=== PATIENT | male | born 1955 | race African-American/Black ===

== ENCOUNTER → 2017-03-21 | Outpatient (CLI) | payer OTHER, BC ==
[2014-02-02 13:59] VITALS: BP 187/109
--- NOTE | 2017-03-21 15:43 | RAD ---
History: Low back pain Study: Lumbar spine complete Findings: Multiple views of the lumbar spine demonstrate normal alignment and disc spacing. There is only minimal endplate spurring. There are mild degenerative changes of the lower lumbar apophyseal angelita ints. No fracture or bony destructive process is seen. Impression: Minimal spondylosis and osteoarthrosis of the lumbar spine. Reported By:
== END | disposition home or self-care (01) | DRG 552 ==
LOC: RAD 14:18
PROVIDERS: ATTEND Nurse Practitioner Family
DX: M54.5 Low back pain (principal); M47.896 Other spondylosis, lumbar region
CPT/HCPCS: 72110

== ENCOUNTER 2017-06-02 11:27 | Observation (INO) | payer OTHER, BC ==
[2017-06-02] MEDS ORDERED: TUSSIONEX PENNKINETIC SUSP PO PRN (12:02)
--- NOTE | 2017-06-02 12:23 | DR.H&P ---
H&P - History & Physical for Day of: H&P Date: 06/02/17 - Chief Complaint Chief Complaint: FEVER, CHILLS, CCC, WHEEZING, BODY ACHES - Allergies Allergies/Adverse Reactions: Allergies Allergy/AdvReac Type Severity Reaction Status Date / Time MS No Known Drug Allergy Allergy Unverified 02/02/14 13:59 [No Known Drug Allergy] - History of Present Illness History of Present Illness: 61 BM DIRECT ADMIT FROM DR CHEUNG OFFICE WITH CO FEVER, CHILLS, CCC AND WHEEZING FOR 2 WEEKS. PT HAS TAKEN IM STEROIDS AND OTC MEDICATION FOR CHEST CONGESTION. PT STATES HE HAS BEEN WEAK IN THE BED WITH CHILLS FOR LAST 2-3 DAYS. PT HAS PMH OF HTN, PROSTATE CA, BPH, OA. PT ADMITTED FOR TREATMENT AND EVALUATION OF BRONCHITIS AND FLU LIKE ILLNESS - Past Medical History Past Medical History: Gout, Hypertension - Social History Does patient currently use any type of tobacco product: Yes Have you used tobacco products in the last 12 months: Yes (`) Type of Tobacco Use: Cigarettes Does any household member use tobacco: No Alcohol Use: Occasionally Drug Use: None - Review of Systems Constitutional: Fever, Chills, Weakness Eyes: No Symptoms Reported ENT: Nose Discharge, Nose Congestion, Throat Pain Respiratory: Cough, Sputum, Wheezing Cardiovascular: No Symptoms Reported Gastrointestinal: No Symptoms Reported Genitourinary: No Symptoms Reported Musculoskeletal: Shoulder Pain, Back Pain, Leg Pain Skin: No Symptoms Reported Neurological: Weakness - Physical Exam Vital Signs: Blood Pressure 187/109 Oriented: Normal Eyes: Normal Ear: Normal Nose: Discharge Throat: Normal Respiratory: RLL Diminished, LLL Diminished Cardiovascular: Normal : Normal Auscultation: Bowel Sounds: Normal Palpation: Normal Tenderness: Normal Skin: Normal Musculoskeletal: Right, Left, Knee, Back:Lumbar, Tender, Instability Psychiatric: Anxiety Speech Pattern: Clear, Appropriate - Assessment/Plan (1) Acute bronchitis Status: Acute Plan: ADMIT, PNEUMONIA PROTOCOL. IV ATBX, RESP THERAPY, CXR ON ADMISSION. BLOOD AND SPUTUM CULTURES, SUPPLEMENTAL O2. RESUME HOME MEDS. HTN MONITORING (2) Hypertension Status: Acute (3) Myalgia and myositis Status: Acute
[2017-06-02] MEDS ORDERED: DUONEB 0.5 MG/3 MG ONE (12:59)
[2017-06-02] MEDS: DUONEB 0.5 MG/3 MG NEB SCH ×3 (13:00→20:51)
--- NOTE | 2017-06-02 13:53 | RAD ---
HISTORY: Cough Study: Chest PA and lateral Comparison: None Findings: The heart is within normal limits in size. The chaya are normal. The lungs are well inflated and free of acute alveolar infiltrates. No pleural effusions are identified. The bony thorax is unremarkable w ith the exception of thoracic spondylosis. IMPRESSION: Lungs clear Reported By:
[2017-06-02 14:04] LABS: ALANINE AMINOTRANSFERASE 44 Units/L (12-78); ALBUMIN 4.2 g/dL (3.4-5.0); ALKALINE PHOSPHATASE 76 Units/L (46-116); ASPARTATE AMINO TRANSFERASE 23 Units/L (15-37); BLOOD UREA NITROGEN 18 mg/dL (7-18); CALCIUM 8.8 mg/dL (8.5-10.1); CARBON DIOXIDE 23.4 mmol/L (21-32); CHLORIDE 104 mmol/L (98-107); CREATININE 1.35 mg/dL (0.70-1.30); SODIUM 139 mmol/L (136-145); TOTAL PROTEIN 8.9 g/dL (6.4-8.2); eGFR BLACK RACES > 60 (>60); eGFR NON BLACK RACES 57 (>60)
[2017-06-02 14:08] LABS: BASOPHILS # (AUTO) 0.1 X10^3/uL (0.0-0.1); EOSINOPHILS # (AUTO) 0.2 x10^3/uL (0.0-0.2); EOSINOPHILS % (AUTO) 1.8 % (0.9-2.9); HEMOGLOBIN 17.3 g/dL (13.5-18.0); LYMPHOCYTES % (AUTO) 19.7 % (21.0-51.0); MEAN CORPUSCULAR HEMOGLOBIN 30.1 pg (27.0-34.0); MEAN CORPUSCULAR HGB CONC 35.4 g/dL (33.0-35.0); MEAN PLATELET VOLUME 8.6 fL (7.4-11.0); MONOCYTES # (AUTO) 0.8 x10^3/uL (0.3-0.8); MONOCYTES % (AUTO) 7.9 % (0.0-13.0); NEUTROPHILS # (AUTO) 7.2 x10^3/uL (2.2-4.8); NEUTROPHILS % (AUTO) 69.6 % (42.0-75.0); PLATELET COUNT 224 X10^3/uL (150.0-450.0); RED BLOOD COUNT 5.76 X10^6/uL (4.7-6.0); RED CELL DISTRIBUTION WIDTH 13.9 % (11.6-16.5); WHITE BLOOD COUNT 10.4 X10^3/uL (3.6-10.0)
[2017-06-02] MEDS ORDERED: NS 1/2 1000 ML IV 1,000 ML IV ONE (14:28)
[2017-06-02] MEDS: COLACE CAP 100 MG PO SCH ×2 (14:42→21:03)
[2017-06-02] MEDS: LEVAQUIN PREMIX IV 750 MG 750 MG/150 ML BAG IV SCH (14:42)
[2017-06-02] MEDS: NS 1/2 1000 ML IV 1,000 ML IV SCH (14:43)
[2017-06-02] MEDS: ROBITUSSIN DM PO SCH ×3 (14:44→21:03)
[2017-06-02] MEDS: ZOSYN VIAL 4.5 GM 4.5 GM in NS 100 ML IV + SPIKE MINIBAG* 100 ML IV SCH ×2 (14:44→22:02)
[2017-06-02] MEDS: SOLU-Medrol 40 MG VIAL IVP SCH ×3 (14:44→22:02)
[2017-06-02] MEDS: PERCOCET TAB 5/325 MG PO PRN ×2 (14:58→21:03)
[2017-06-03] MEDS: DUONEB 0.5 MG/3 MG NEB SCH ×6 (01:06→21:29)
[2017-06-03] MEDS: SOLU-Medrol 40 MG VIAL IVP SCH ×3 (06:08→21:22)
[2017-06-03] MEDS: ZOSYN VIAL 4.5 GM 4.5 GM in NS 100 ML IV + SPIKE MINIBAG* 100 ML IV SCH ×3 (06:09→21:22)
[2017-06-03 06:24] VITALS: BMI 39.8
[2017-06-03 06:24] LABS: BASOPHILS % (AUTO) 0.3 % (0.2-1.0); HEMATOCRIT 46.4 % (42.0-54.0); HEMOGLOBIN 16.1 g/dL (13.5-18.0); LYMPHOCYTES # (AUTO) 0.7 X10^3/uL (1.3-2.9); LYMPHOCYTES % (AUTO) 6.9 % (21.0-51.0); MEAN CORPUSCULAR HEMOGLOBIN 29.8 pg (27.0-34.0); MEAN CORPUSCULAR HGB CONC 34.7 g/dL (33.0-35.0); MEAN CORPUSCULAR VOLUME 85.9 fL (80.0-100.0); MEAN PLATELET VOLUME 8.4 fL (7.4-11.0); MONOCYTES # (AUTO) 0.3 x10^3/uL (0.3-0.8); MONOCYTES % (AUTO) 2.6 % (0.0-13.0); NEUTROPHILS # (AUTO) 9.4 x10^3/uL (2.2-4.8); NEUTROPHILS % (AUTO) 90.2 % (42.0-75.0); PLATELET COUNT 252 X10^3/uL (150.0-450.0); RED CELL DISTRIBUTION WIDTH 13.8 % (11.6-16.5); WHITE BLOOD COUNT 10.4 X10^3/uL (3.6-10.0)
[2017-06-03 06:36] LABS: BAND NEUTROPHILS % 5 % (0-10)
[2017-06-03 06:37] LABS: PLATELET MORPHOLOGY COMMENT NORMAL (NORMAL)
[2017-06-03 06:38] LABS: ALANINE AMINOTRANSFERASE 39 Units/L (12-78); ALBUMIN 3.7 g/dL (3.4-5.0); ALKALINE PHOSPHATASE 62 Units/L (46-116); ASPARTATE AMINO TRANSFERASE 19 Units/L (15-37); BLOOD UREA NITROGEN 24 mg/dL (7-18); CALCIUM 8.7 mg/dL (8.5-10.1); CARBON DIOXIDE 26.5 mmol/L (21-32); CHLORIDE 103 mmol/L (98-107); COR NA(FOR HYPERGLY) 139 mmol/L (136-145); CREATININE 2.08 mg/dL (0.70-1.30); SODIUM 138 mmol/L (136-145); TOTAL PROTEIN 8.7 g/dL (6.4-8.2); eGFR BLACK RACES 42 (>60); eGFR NON BLACK RACES 35 (>60)
[2017-06-03] MEDS: ROBITUSSIN DM PO SCH ×4 (09:45→21:22)
[2017-06-03] MEDS: LEVAQUIN PREMIX IV 750 MG 750 MG/150 ML BAG IV SCH (09:45)
[2017-06-03] MEDS: PERCOCET TAB 5/325 MG PO PRN ×2 (10:13→21:35)
[2017-06-03] MEDS ORDERED: ZESTRIL TAB 20 MG ONE (10:55)
[2017-06-03] MEDS: HYDROCHLOROTHIAZIDE 12.5 MG CAP PO SCH (11:14)
[2017-06-03] MEDS: ZANTAC PO SCH (11:15)
[2017-06-03] MEDS: ZESTRIL TAB 20 MG PO SCH (11:15)
[2017-06-03] MEDS ORDERED: NS 1/2 1000 ML IV 1,000 ML IV ONE ×2 (12:24→16:48)
[2017-06-03] MEDS: NEURONTIN CAP 300 MG PO SCH ×2 (13:07→21:22)
[2017-06-03] MEDS ORDERED: TIZANIDINE HCL 6 MG PO SCH (14:00)
[2017-06-03] MEDS: NS 1/2 1000 ML IV 1,000 ML IV SCH ×3 (15:07→22:05)
[2017-06-03] MEDS ORDERED: LEVSIN/MAALOX/LIDOC VISC PO PRN (16:00)
--- NOTE | 2017-06-03 17:30 | DR.CONSULT ---
Consult - Consultation for Day of: Date: 06/03/17 - Chief Complaint Chief Complaint: Patient referred for dysphagia. Patient with complaints of dysphagia and LUQ pain. - Allergies Allergies/Adverse Reactions: Allergies Allergy/AdvReac Type Severity Reaction Status Date / Time No Known Drug Allergies Allergy Verified 06/02/17 13:16 - History of Present Illness History of Present Illness: Patient is a 61yo male who was referred for dysphagia. Patient with complaints of dysphagia that has been going on for 1 year and LUQ pain. Patient denies dyspepsia, nausea, vomiting, constipation, diarrhea, melena and hematochezia. He states that he had a colonoscopy over 10yrs ago and has never had an EGD. - Past Medical History Past Medical History: Gout, Hypertension Additional Medical History: hypercholesterolemia, prostate cancer - Past Surgical History Surgical History: Appendectomy, Other - Family History Family Medical History: ID, Coronary Artery Disease, Heart Failure, Sudden Cardiac , Hypertension - Social History Does patient currently use any type of tobacco product: No Have you used tobacco products in the last 12 months: No (`) Type of Tobacco Use: None How many years tobacco product used: 15 Does any household member use tobacco: No Alcohol Use: Occasionally Drug Use: None - Medications Home Medications: Allopurinol 300 mg PO DAILY 06/02/17 [History Confirmed 06/02/17] Anastrozole [ARIMIDEX tab 1 mg *] 1 tab PO DAILY 06/02/17 [History Confirmed 02/07] Aspirin EC [ASPIRIN EC 81 MG *] 1 tab PO DAILY 06/02/17 [History Confirmed 06/02] Gabapentin 1 cap PO TID 06/02/17 [History Confirmed 06/02/17] Lisinopril/Hydrochlorothiazide [Lisinopril-Hctz 20-12.5 mg Tab] 1 tab PO DAILY 06/02/17 [History Confirmed 06/02/17] Metoprolol Succinate Ext Rel [TOPROL XL 25 MG *] 1 tab PO DAILY 06/02/17 [ History Confirmed 06/02/17] Oxycodone HCl/Acetaminophen [Percocet 10-325 mg Tablet] 1 tab PO Q6H PRN [History Confirmed 06/02/17] Ranitidine HCl 1 tab PO HS 06/02/17 [History Confirmed 06/02/17] Simvastatin 1 tab PO HS 06/02/17 [History Confirmed 06/02/17] Tizanidine HCl 6 mg PO TID 06/02/17 [History Confirmed 06/02/17] - Review of Systems Constitutional: No Symptoms Reported Eyes: No Symptoms Reported ENT: No Symptoms Reported Respiratory: No Symptoms Reported Cardiovascular: No Symptoms Reported Gastrointestinal: Abdominal Pain (LUQ), Other (dysphagia) Genitourinary: No Symptoms Reported Musculoskeletal: No Symptoms Reported Skin: No Symptoms Reported - Physical Exam Vital Signs: Temperature 98.7 F Pulse Rate [Right Brachial] 103 Pulse Rate 86 Respiratory Rate 20 Blood Pressure [Right Arm] 123/57 Blood Pressure 187/109 O2 Sat by Pulse Oximetry 98 Oriented: Normal Eyes: Normal Ear: Normal Nose: Normal Throat: Normal Respiratory: Clear Throughout Cardiovascular: Normal : Normal Auscultation: Bowel Sounds: Normal Palpation: Normal Tenderness: LUQ Skin: Normal Musculoskeletal: Normal Psychiatric: Normal Mood Description: Calm Affect: Normal Speech Pattern: Clear - Plan Plan: Assessment. 1. Dysphagia r/o esophageal stricture. 2. LUQ pain r/o gastric ulcer, gastric adenocarcinoma. 3. Colon Cancer Screening. Plan. 1. Cont pepcid IV. EGD on tuesday if patient still in hospital if patient is discharged he can follow up in office as outpatient and EGD will be set up as outpatient. He will also need a screening colonoscopy as an outpatient
[2017-06-03] MEDS: PEPCID 20 MG IV PREMIX* 20 MG/50 ML BAG IV SCH ×2 (17:35→21:22)
[2017-06-03] MEDS: LOVENOX INJ 40 MG SYR SC SCH (17:36)
[2017-06-03] MEDS ORDERED: RANITIDINE HCL PO SCH (21:00)
[2017-06-03] MEDS: ZOCOR TAB 10 MG PO SCH (21:22)
[2017-06-03] MEDS: COLACE CAP 100 MG PO SCH (21:22)
[2017-06-04] MEDS: DUONEB 0.5 MG/3 MG NEB SCH ×6 (00:39→20:51)
[2017-06-04 05:27] LABS: BASOPHILS % (AUTO) 0.2 % (0.2-1.0); EOSINOPHILS % (AUTO) 0.1 % (0.9-2.9); HEMATOCRIT 45.1 % (42.0-54.0); HEMOGLOBIN 15.6 g/dL (13.5-18.0); LYMPHOCYTES # (AUTO) 0.7 X10^3/uL (1.3-2.9); LYMPHOCYTES % (AUTO) 5.9 % (21.0-51.0); MEAN CORPUSCULAR HEMOGLOBIN 29.9 pg (27.0-34.0); MEAN CORPUSCULAR HGB CONC 34.5 g/dL (33.0-35.0); MEAN CORPUSCULAR VOLUME 86.5 fL (80.0-100.0); MEAN PLATELET VOLUME 8.2 fL (7.4-11.0); MONOCYTES # (AUTO) 0.8 x10^3/uL (0.3-0.8); MONOCYTES % (AUTO) 6.6 % (0.0-13.0); NEUTROPHILS # (AUTO) 10.8 x10^3/uL (2.2-4.8); NEUTROPHILS % (AUTO) 87.2 % (42.0-75.0); PLATELET COUNT 252 X10^3/uL (150.0-450.0); RED BLOOD COUNT 5.22 X10^6/uL (4.7-6.0); RED CELL DISTRIBUTION WIDTH 13.7 % (11.6-16.5); WHITE BLOOD COUNT 12.3 X10^3/uL (3.6-10.0)
[2017-06-04 05:35] LABS: ALANINE AMINOTRANSFERASE 37 Units/L (12-78); ALBUMIN 3.7 g/dL (3.4-5.0); ALKALINE PHOSPHATASE 54 Units/L (46-116); ASPARTATE AMINO TRANSFERASE 31 Units/L (15-37); BLOOD UREA NITROGEN 33 mg/dL (7-18); CARBON DIOXIDE 26.1 mmol/L (21-32); CHLORIDE 101 mmol/L (98-107); COR NA(FOR HYPERGLY) 137 mmol/L (136-145); CREATININE 1.92 mg/dL (0.70-1.30); SODIUM 136 mmol/L (136-145); eGFR BLACK RACES 46 (>60); eGFR NON BLACK RACES 38 (>60)
[2017-06-04] MEDS: SOLU-Medrol 40 MG VIAL IVP SCH ×3 (05:50→21:57)
[2017-06-04] MEDS: NEURONTIN CAP 300 MG PO SCH ×3 (05:50→21:57)
[2017-06-04] MEDS: ZOSYN VIAL 4.5 GM 4.5 GM in NS 100 ML IV + SPIKE MINIBAG* 100 ML IV SCH ×3 (05:50→21:57)
[2017-06-04] MEDS ORDERED: PATIENT'S HOME MEDICATION (Lisinopril/Hydrochlorothiazide [Lisinopril-Hctz 20-12.5 Mg Tab] PO SCH (09:00)
[2017-06-04] MEDS ORDERED: ZESTRIL TAB 20 MG ONE (09:09)
[2017-06-04] MEDS: ASPIRIN EC 81 MG PO SCH (09:16)
[2017-06-04] MEDS: ARIMIDEX PO SCH (09:16)
[2017-06-04] MEDS: LEVAQUIN PREMIX IV 750 MG 750 MG/150 ML BAG IV SCH (09:17)
[2017-06-04] MEDS: ROBITUSSIN DM PO SCH ×4 (09:17→21:56)
[2017-06-04] MEDS: LOVENOX INJ 40 MG SYR SC SCH (09:17)
[2017-06-04] MEDS: PEPCID 20 MG IV PREMIX* 20 MG/50 ML BAG IV SCH ×2 (09:17→21:56)
[2017-06-04] MEDS: HYDROCHLOROTHIAZIDE 12.5 MG CAP PO SCH (09:17)
[2017-06-04] MEDS: ZESTRIL TAB 20 MG PO SCH (09:18)
[2017-06-04] MEDS: ZANTAC PO SCH (09:18)
[2017-06-04] MEDS: TOPROL XL PO SCH (09:18)
[2017-06-04] MEDS: ZYLOPRIM PO SCH (09:18)
[2017-06-04] MEDS: PERCOCET TAB 5/325 MG PO PRN ×2 (09:32→16:03)
[2017-06-04] MEDS: ZANAFLEX PO PRN ×2 (09:32→18:56)
[2017-06-04 09:57] LABS: BILIRUBIN,URINE NEGATIVE (NEGATIVE); BLOOD/HEMOGLOBIN,URINE 1+ (NEGATIVE); GLUCOSE, URINE NEGATIVE (NEGATIVE); KETONES,URINE NEGATIVE (NEGATIVE); LEUKOCYTE ESTERASE ,URINE NEGATIVE (NEGATIVE); NITRITES,URINE NEGATIVE (NEGATIVE); PROTEIN,URINE NEGATIVE (NEGATIVE); UROBILINOGEN,URINE NORMAL (NORMAL)
[2017-06-04 10:14] LABS: APPEARANCE,URINE CLEAR (CLEAR); BACTERIA,URINE NEGATIVE /HPF (NEGATIVE); COLOR,URINE STRAW (YELLOW); RBC,URINE 0-2 /HPF (NONE SEEN); SQUAMOUS EPITHELIAL CELL,UR NEGATIVE /HPF (NEGATIVE)
[2017-06-04] MEDS ORDERED: NS 1/2 1000 ML IV 1,000 ML IV ONE (15:56)
[2017-06-04] MEDS ORDERED: AYR NASAL DROPS PRN (19:41)
[2017-06-04] MEDS: ZOCOR TAB 10 MG PO SCH (21:56)
[2017-06-04] MEDS: COLACE CAP 100 MG PO SCH (21:56)
[2017-06-05] MEDS: DUONEB 0.5 MG/3 MG NEB SCH ×6 (01:29→21:08)
[2017-06-05] MEDS: NS 1/2 1000 ML IV 1,000 ML IV SCH ×3 (02:55→23:07)
[2017-06-05] MEDS: ZANAFLEX PO PRN ×2 (03:10→12:24)
[2017-06-05] MEDS: PERCOCET TAB 5/325 MG PO PRN ×4 (03:11→18:26)
[2017-06-05 04:59] LABS: BASOPHILS % (AUTO) 0.2 % (0.2-1.0); HEMATOCRIT 44.8 % (42.0-54.0); HEMOGLOBIN 15.5 g/dL (13.5-18.0); LYMPHOCYTES # (AUTO) 0.6 X10^3/uL (1.3-2.9); LYMPHOCYTES % (AUTO) 6.1 % (21.0-51.0); MEAN CORPUSCULAR HGB CONC 34.7 g/dL (33.0-35.0); MEAN CORPUSCULAR VOLUME 86.5 fL (80.0-100.0); MEAN PLATELET VOLUME 8.4 fL (7.4-11.0); MONOCYTES # (AUTO) 0.5 x10^3/uL (0.3-0.8); MONOCYTES % (AUTO) 4.8 % (0.0-13.0); NEUTROPHILS # (AUTO) 9.2 x10^3/uL (2.2-4.8); NEUTROPHILS % (AUTO) 88.9 % (42.0-75.0); PLATELET COUNT 252 X10^3/uL (150.0-450.0); RED BLOOD COUNT 5.18 X10^6/uL (4.7-6.0); RED CELL DISTRIBUTION WIDTH 13.9 % (11.6-16.5); WHITE BLOOD COUNT 10.4 X10^3/uL (3.6-10.0)
[2017-06-05 05:10] LABS: ALANINE AMINOTRANSFERASE 36 Units/L (12-78); ALBUMIN 3.4 g/dL (3.4-5.0); ALKALINE PHOSPHATASE 50 Units/L (46-116); ASPARTATE AMINO TRANSFERASE 31 Units/L (15-37); BLOOD UREA NITROGEN 28 mg/dL (7-18); CALCIUM 8.2 mg/dL (8.5-10.1); CARBON DIOXIDE 25.2 mmol/L (21-32); CHLORIDE 103 mmol/L (98-107); COR NA(FOR HYPERGLY) 140 mmol/L (136-145); CREATININE 1.71 mg/dL (0.70-1.30); SODIUM 138 mmol/L (136-145); TOTAL PROTEIN 7.5 g/dL (6.4-8.2); eGFR BLACK RACES 53 (>60); eGFR NON BLACK RACES 44 (>60)
[2017-06-05] MEDS: NEURONTIN CAP 300 MG PO SCH ×3 (05:33→22:00)
[2017-06-05] MEDS: ZOSYN VIAL 4.5 GM 4.5 GM in NS 100 ML IV + SPIKE MINIBAG* 100 ML IV SCH ×3 (05:33→22:00)
[2017-06-05] MEDS: SOLU-Medrol 40 MG VIAL IVP SCH (05:33)
--- NOTE | 2017-06-05 08:05 | RAD ---
Examination: Portable AP chest History: SOB Comparison 06/02/2017 Findings: Continued normal heart size with essentially clear lungs and pleural spaces. Impression: No acute or significant chest findings on portable AP examination. Reported By:
[2017-06-05] MEDS ORDERED: ZESTRIL TAB 20 MG ONE (08:46)
[2017-06-05] MEDS: ZYLOPRIM PO SCH (08:53)
[2017-06-05] MEDS: PEPCID 20 MG IV PREMIX* 20 MG/50 ML BAG IV SCH ×2 (08:53→20:57)
[2017-06-05] MEDS: ARIMIDEX PO SCH (08:53)
[2017-06-05] MEDS: ZESTRIL TAB 20 MG PO SCH (08:53)
[2017-06-05] MEDS: LOVENOX INJ 40 MG SYR SC SCH (08:54)
[2017-06-05] MEDS: ASPIRIN EC 81 MG PO SCH (08:54)
[2017-06-05] MEDS: HYDROCHLOROTHIAZIDE 12.5 MG CAP PO SCH (08:54)
[2017-06-05] MEDS: ROBITUSSIN DM PO SCH ×4 (08:54→20:55)
[2017-06-05] MEDS: TOPROL XL PO SCH (08:54)
[2017-06-05] MEDS: LEVAQUIN PREMIX IV 750 MG 750 MG/150 ML BAG IV SCH (08:55)
[2017-06-05] MEDS ORDERED: NS 1/2 1000 ML IV 1,000 ML IV ONE (12:16)
[2017-06-05] MEDS: COLACE CAP 100 MG PO SCH (20:55)
[2017-06-05] MEDS: ZOCOR TAB 10 MG PO SCH (20:55)
[2017-06-05] MEDS: MILK OF MAGNESIA PO SCH (20:55)
--- NOTE | 2017-06-05 21:59 | PCM.PROG ---
Progress Note - Progress Note for Day of Date: 06/04/17 - Subjective Subjective: IS BEING TREATED FOR ACUTE BRONCHITIS. TODAY, HE IS ALERT AND ORIENTED, SITTING UP IN BED ON MORNING ROUNDS. HE IS NOTED WITH COMPLAINTS OF SHORTNESS OF BREATH, COUGH, AND DIFFICULTY SWALLOWING. ON EXAMINATION, HE IS NOTED WITH SCATTERED WHEEZING THROUGHOUT. HIS VITALS THIS MORNING ARE 98.3-90-20-96%-142/73. WBC INCREASED FROM 10.4 TO 12.3, BUN 33, CREATININE 1.92, GLUCOSE 147, CALCIUM 8.0. HE IS SCHEDULED FOR AN EGD ON TUESDAY. HE IS CURRENTLY RECEIVING ZOSYN AND LEVAQUIN IV, PEPCID IV, RESPIRATORY TRETMENTS, AND SUPPLEMENTAL OXYGEN. WE WILL CONTINUE WITH CURRENT PLAN TO CARE TODAY. WE PLAN TO FOLLOW UP WITH AM LABS AND CONTINUE TO MONITOR PATIENT. - Past Medical Family Social History Past Med/Fam/Surg Hx: No changes since H&P Allergies: Allergies No Known Drug Allergies Allergy (Verified 06/02/17 13:16) - Review of Systems ROS: No change since H&P - Vital Signs and I&O's Vital Signs: Temperature 98.3 F Pulse Rate [Right Brachial] 61 Pulse Rate 76 Respiratory Rate 16 Blood Pressure [Right Arm] 138/67 Blood Pressure 187/109 O2 Sat by Pulse Oximetry 99 Intake and Output: Intake & Output 06/03/17 06/04/17 06/05/17 06/06/17 11:59 11:59 11:59 11:59 Intake Total 1230 5530 3843 480 Balance 1230 5530 3843 480 - Physical Exam Oriented: Normal Eyes: Normal Ear: Normal Nose: Normal Throat: Normal Respiratory: Wheezes Cardiovascular: Normal : Normal Auscultation: Bowel Sounds: Normal Palpation: Normal Tenderness: LUQ Skin: Normal Musculoskeletal: Normal Psychiatric: Normal Mood Description: Calm Affect: Normal Speech Pattern: Clear, Appropriate - Laboratory and Diagnostics Result Diagrams: 06/05/17 04:20 06/05/17 04:20 Labs: 06/02/17 13:25 Blood Blood Culture - Preliminary 06/02/17 13:30 Blood Blood Culture - Preliminary 06/02/17 13:31 Sputum - Expectorated Sputum Sputum Culture - Final 06/02/17 13:31 Sputum - Expectorated Sputum - Final Laboratory WBC 10.4 X10^3/uL (3.6-10.0) H 06/05/17 04:20 RBC 5.18 X10^6/uL (4.7-6.0) 06/05/17 04:20 Hgb 15.5 g/dL (13.5-18.0) 06/05/17 04:20 Hct 44.8 % (42.0-54.0) 06/05/17 04:20 MCV 86.5 fL (80.0-100.0) 06/05/17 04:20 MCH 30.0 pg (27.0-34.0) 06/05/17 04:20 MCHC 34.7 g/dL (33.0-35.0) 06/05/17 04:20 RDW 13.9 % (11.6-16.5) 06/05/17 04:20 Plt Count 252 X10^3/uL (150.0-450.0) 06/05/17 04:20 Plt Count Comment Adequate (ADEQUATE) 06/03/17 05:27 MPV 8.4 fL (7.4-11.0) 06/05/17 04:20 Neut % (Auto) 88.9 % (42.0-75.0) H 06/05/17 04:20 Lymph % (Auto) 6.1 % (21.0-51.0) L 06/05/17 04:20 [place] % (Auto) 4.8 % (0.0-13.0) 06/05/17 04:20 Eos % (Auto) 0.0 % (0.9-2.9) L 06/05/17 04:20 Baso % (Auto) 0.2 % (0.2-1.0) 06/05/17 04:20 Neut # (Auto) 9.2 x10^3/uL (2.2-4.8) H 06/05/17 04:20 Lymph # (Auto) 0.6 X10^3/uL (1.3-2.9) L 06/05/17 04:20 [place] # (Auto) 0.5 x10^3/uL (0.3-0.8) 06/05/17 04:20 Eos # (Auto) 0.0 x10^3/uL (0.0-0.2) 06/05/17 04:20 Baso # (Auto) 0.0 X10^3/uL (0.0-0.1) 06/05/17 04:20 Absolute Nucleated RBC 0.1 /100WBC 06/05/17 04:20 Total Counted 100 06/03/17 05:27 Neutrophils % (Manual) 81 % (39-76) H 06/03/17 05:27 Band Neutrophils % 5 % (0-10) 06/03/17 05:27 Lymphocytes % (Manual) 8 % (13-43) L 06/03/17 05:27 Monocytes % (Manual) 6 % (4-9) 06/03/17 05:27 Plt Morphology Comment Normal (NORMAL) 06/03/17 05:27 RBC Morphology Normal (NORMAL) 06/03/17 05:27 Sodium 138 mmol/L (136-145) 06/05/17 04:20 Corrected Sodium 140 mmol/L (136-145) 06/05/17 04:20 Potassium 4.3 mmol/L (3.5-5.1) 06/05/17 04:20 Chloride 103 mmol/L (98-107) 06/05/17 04:20 Carbon Dioxide 25.2 mmol/L (21-32) 06/05/17 04:20 BUN 28 mg/dL (7-18) H 06/05/17 04:20 Creatinine 1.71 mg/dL (0.70-1.30) H 06/05/17 04:20 Est GFR (MDRD) Af Amer 53 (>60) L 06/05/17 04:20 Est GFR (MDRD) Non-Af 44 (>60) L 06/05/17 04:20 Glucose 169 mg/dL (65-99) H 06/05/17 04:20 Calcium 8.2 mg/dL (8.5-10.1) L 06/05/17 04:20 Corrected Calcium TNP 06/05/17 04:20 Total Bilirubin 0.30 mg/dL (0.2-1.0) 06/05/17 04:20 AST 31 Units/L (15-37) 06/05/17 04:20 ALT 36 Units/L (12-78) 06/05/17 04:20 Alkaline Phosphatase 50 Units/L (46-116) 06/05/17 04:20 Total Protein 7.5 g/dL (6.4-8.2) 06/05/17 04:20 Albumin 3.4 g/dL (3.4-5.0) 06/05/17 04:20 Globulin 4.1 g/dL (2.5-4.5) 06/05/17 04:20 Albumin/Globulin Ratio 0.8 Ratio (1.1-2.1) L 06/05/17 04:20 Specimen Type Clean catch urine 06/04/17 09:37 Urine Color Straw (YELLOW) 06/04/17 09:37 Urine Appearance Clear (CLEAR) 06/04/17 09:37 Urine pH 6.0 (5.0 - 8.0) 06/04/17 09:37 Ur Specific [place] 1.005 (1.000-1.030) 06/04/17 09:37 Urine Protein Negative (NEGATIVE) 06/04/17 09:37 Urine Glucose (UA) Negative (NEGATIVE) 06/04/17 09:37 Urine Ketones Negative (NEGATIVE) 06/04/17 09:37 Urine Occult Blood 1+ (NEGATIVE) 06/04/17 09:37 Urine Nitrite Negative (NEGATIVE) 06/04/17 09:37 Urine Bilirubin Negative (NEGATIVE) 06/04/17 09:37 Urine Urobilinogen Normal (NORMAL) 06/04/17 09:37 Ur Leukocyte Esterase Negative (NEGATIVE) 06/04/17 09:37 Urine RBC 0-2 /HPF (NONE SEEN) 06/04/17 09:37 Urine WBC None seen /HPF (NONE SEEN) 06/04/17 09:37 Ur Squamous Epith Cells Negative /HPF (NEGATIVE) 06/04/17 09:37 Urine Bacteria Negative /HPF (NEGATIVE) 06/04/17 09:37 Ur Culture Indicated? No/not indicated 06/04/17 09:37
--- NOTE | 2017-06-05 22:48 | PCM.PROG ---
Progress Note - Progress Note for Day of Date: 06/05/17 - Subjective Subjective: IS BEING TREATED FOR ACUTE BRONCHITIS. TODAY, HE IS ALERT AND ORIENTED, SITTING UP IN BED ON MORNING ROUNDS. HE IS NOTED WITH COMPLAINTS OF SHORTNESS OF BREATH, COUGH, AND DIFFICULTY SWALLOWING. ON EXAMINATION, HE IS NOTED WITH SCATTERED WHEEZING THROUGHOUT. HIS VITALS THIS MORNING ARE 98.1-68-20-98%-132/72. ABNORMAL LAB VALUES INCLUDE THE FOLLOWING: WBC 10.4, BUN 28, CREATININE 1.71, GLUCOSE 169, CALCIUM 8.2. HE IS SCHEDULED FOR AN EGD ON TUESDAY. HE IS CURRENTLY RECEIVING ZOSYN AND LEVAQUIN IV, PEPCID IV, RESPIRATORY TRETMENTS, AND SUPPLEMENTAL OXYGEN. WE WILL CONTINUE WITH CURRENT PLAN TO CARE TODAY. WE PLAN TO FOLLOW UP WITH AM LABS AND CONTINUE TO MONITOR PATIENT. - Past Medical Family Social History Past Med/Fam/Surg Hx: No changes since H&P Allergies: Allergies No Known Drug Allergies Allergy (Verified 06/02/17 13:16) - Review of Systems ROS: No change since H&P - Vital Signs and I&O's Vital Signs: Temperature 98.3 F Pulse Rate [Right Brachial] 61 Pulse Rate 76 Respiratory Rate 16 Blood Pressure [Right Arm] 138/67 Blood Pressure 187/109 O2 Sat by Pulse Oximetry 99 Intake and Output: Intake & Output 06/03/17 06/04/17 06/05/17 06/06/17 11:59 11:59 11:59 11:59 Intake Total 1230 5530 3843 480 Balance 1230 5530 3843 480 - Physical Exam Oriented: Normal Eyes: Normal Ear: Normal Nose: Normal Throat: Normal Respiratory: Wheezes Cardiovascular: Normal : Normal Auscultation: Bowel Sounds: Normal Palpation: Normal Tenderness: LUQ Skin: Normal Musculoskeletal: Normal Psychiatric: Normal Mood Description: Calm Affect: Normal Speech Pattern: Clear, Appropriate - Laboratory and Diagnostics Result Diagrams: 06/05/17 04:20 06/05/17 04:20 Labs: 06/02/17 13:25 Blood Blood Culture - Preliminary 06/02/17 13:30 Blood Blood Culture - Preliminary 06/02/17 13:31 Sputum - Expectorated Sputum Sputum Culture - Final 06/02/17 13:31 Sputum - Expectorated Sputum - Final Laboratory WBC 10.4 X10^3/uL (3.6-10.0) H 06/05/17 04:20 RBC 5.18 X10^6/uL (4.7-6.0) 06/05/17 04:20 Hgb 15.5 g/dL (13.5-18.0) 06/05/17 04:20 Hct 44.8 % (42.0-54.0) 06/05/17 04:20 MCV 86.5 fL (80.0-100.0) 06/05/17 04:20 MCH 30.0 pg (27.0-34.0) 06/05/17 04:20 MCHC 34.7 g/dL (33.0-35.0) 06/05/17 04:20 RDW 13.9 % (11.6-16.5) 06/05/17 04:20 Plt Count 252 X10^3/uL (150.0-450.0) 06/05/17 04:20 Plt Count Comment Adequate (ADEQUATE) 06/03/17 05:27 MPV 8.4 fL (7.4-11.0) 06/05/17 04:20 Neut % (Auto) 88.9 % (42.0-75.0) H 06/05/17 04:20 Lymph % (Auto) 6.1 % (21.0-51.0) L 06/05/17 04:20 [place] % (Auto) 4.8 % (0.0-13.0) 06/05/17 04:20 Eos % (Auto) 0.0 % (0.9-2.9) L 06/05/17 04:20 Baso % (Auto) 0.2 % (0.2-1.0) 06/05/17 04:20 Neut # (Auto) 9.2 x10^3/uL (2.2-4.8) H 06/05/17 04:20 Lymph # (Auto) 0.6 X10^3/uL (1.3-2.9) L 06/05/17 04:20 [place] # (Auto) 0.5 x10^3/uL (0.3-0.8) 06/05/17 04:20 Eos # (Auto) 0.0 x10^3/uL (0.0-0.2) 06/05/17 04:20 Baso # (Auto) 0.0 X10^3/uL (0.0-0.1) 06/05/17 04:20 Absolute Nucleated RBC 0.1 /100WBC 06/05/17 04:20 Total Counted 100 06/03/17 05:27 Neutrophils % (Manual) 81 % (39-76) H 06/03/17 05:27 Band Neutrophils % 5 % (0-10) 06/03/17 05:27 Lymphocytes % (Manual) 8 % (13-43) L 06/03/17 05:27 Monocytes % (Manual) 6 % (4-9) 06/03/17 05:27 Plt Morphology Comment Normal (NORMAL) 06/03/17 05:27 RBC Morphology Normal (NORMAL) 06/03/17 05:27 Sodium 138 mmol/L (136-145) 06/05/17 04:20 Corrected Sodium 140 mmol/L (136-145) 06/05/17 04:20 Potassium 4.3 mmol/L (3.5-5.1) 06/05/17 04:20 Chloride 103 mmol/L (98-107) 06/05/17 04:20 Carbon Dioxide 25.2 mmol/L (21-32) 06/05/17 04:20 BUN 28 mg/dL (7-18) H 06/05/17 04:20 Creatinine 1.71 mg/dL (0.70-1.30) H 06/05/17 04:20 Est GFR (MDRD) Af Amer 53 (>60) L 06/05/17 04:20 Est GFR (MDRD) Non-Af 44 (>60) L 06/05/17 04:20 Glucose 169 mg/dL (65-99) H 06/05/17 04:20 Calcium 8.2 mg/dL (8.5-10.1) L 06/05/17 04:20 Corrected Calcium TNP 06/05/17 04:20 Total Bilirubin 0.30 mg/dL (0.2-1.0) 06/05/17 04:20 AST 31 Units/L (15-37) 06/05/17 04:20 ALT 36 Units/L (12-78) 06/05/17 04:20 Alkaline Phosphatase 50 Units/L (46-116) 06/05/17 04:20 Total Protein 7.5 g/dL (6.4-8.2) 06/05/17 04:20 Albumin 3.4 g/dL (3.4-5.0) 06/05/17 04:20 Globulin 4.1 g/dL (2.5-4.5) 06/05/17 04:20 Albumin/Globulin Ratio 0.8 Ratio (1.1-2.1) L 06/05/17 04:20 Specimen Type Clean catch urine 06/04/17 09:37 Urine Color Straw (YELLOW) 06/04/17 09:37 Urine Appearance Clear (CLEAR) 06/04/17 09:37 Urine pH 6.0 (5.0 - 8.0) 06/04/17 09:37 Ur Specific [place] 1.005 (1.000-1.030) 06/04/17 09:37 Urine Protein Negative (NEGATIVE) 06/04/17 09:37 Urine Glucose (UA) Negative (NEGATIVE) 06/04/17 09:37 Urine Ketones Negative (NEGATIVE) 06/04/17 09:37 Urine Occult Blood 1+ (NEGATIVE) 06/04/17 09:37 Urine Nitrite Negative (NEGATIVE) 06/04/17 09:37 Urine Bilirubin Negative (NEGATIVE) 06/04/17 09:37 Urine Urobilinogen Normal (NORMAL) 06/04/17 09:37 Ur Leukocyte Esterase Negative (NEGATIVE) 06/04/17 09:37 Urine RBC 0-2 /HPF (NONE SEEN) 06/04/17 09:37 Urine WBC None seen /HPF (NONE SEEN) 06/04/17 09:37 Ur Squamous Epith Cells Negative /HPF (NEGATIVE) 06/04/17 09:37 Urine Bacteria Negative /HPF (NEGATIVE) 06/04/17 09:37 Ur Culture Indicated? No/not indicated 06/04/17 09:37
[2017-06-06] MEDS: DUONEB 0.5 MG/3 MG NEB SCH ×5 (01:05→16:13)
[2017-06-06 05:22] LABS: BASOPHILS # (AUTO) 0.1 X10^3/uL (0.0-0.1); BASOPHILS % (AUTO) 1.1 % (0.2-1.0); EOSINOPHILS # (AUTO) 0.1 x10^3/uL (0.0-0.2); EOSINOPHILS % (AUTO) 0.7 % (0.9-2.9); HEMATOCRIT 47.1 % (42.0-54.0); HEMOGLOBIN 16.2 g/dL (13.5-18.0); LYMPHOCYTES # (AUTO) 1.6 X10^3/uL (1.3-2.9); LYMPHOCYTES % (AUTO) 16.6 % (21.0-51.0); MEAN CORPUSCULAR HEMOGLOBIN 29.8 pg (27.0-34.0); MEAN CORPUSCULAR HGB CONC 34.3 g/dL (33.0-35.0); MEAN CORPUSCULAR VOLUME 86.9 fL (80.0-100.0); MEAN PLATELET VOLUME 8.6 fL (7.4-11.0); MONOCYTES # (AUTO) 0.6 x10^3/uL (0.3-0.8); MONOCYTES % (AUTO) 6.1 % (0.0-13.0); NEUTROPHILS # (AUTO) 7.2 x10^3/uL (2.2-4.8); NEUTROPHILS % (AUTO) 75.5 % (42.0-75.0); PLATELET COUNT 236 X10^3/uL (150.0-450.0); RED BLOOD COUNT 5.42 X10^6/uL (4.7-6.0); RED CELL DISTRIBUTION WIDTH 13.9 % (11.6-16.5); WHITE BLOOD COUNT 9.6 X10^3/uL (3.6-10.0)
[2017-06-06 05:45] LABS: ALBUMIN 3.1 g/dL (3.4-5.0); CALCIUM 7.9 mg/dL (8.5-10.1); CARBON DIOXIDE 26.4 mmol/L (21-32); COR CA(FOR HYPOALB) 8.6 mg/dL (8.5-10.1); CREATININE 1.57 mg/dL (0.70-1.30); TOTAL PROTEIN 7.2 g/dL (6.4-8.2)
[2017-06-06] MEDS: NEURONTIN CAP 300 MG PO SCH ×2 (06:13→13:07)
[2017-06-06] MEDS: ZOSYN VIAL 4.5 GM 4.5 GM in NS 100 ML IV + SPIKE MINIBAG* 100 ML IV SCH ×2 (06:13→13:07)
--- NOTE | 2017-06-06 07:16 | RAD ---
HISTORY: Shortness of breath Study: Chest AP portable Comparison: None Findings: The heart is within normal limits in size. The chaya are normal. The lungs are well inflated and free of acute infiltrates. No pleural effusions are identified. The bony thorax is unremarkable. IMPRESSION: Lungs clear Reported By:
[2017-06-06] MEDS: PERCOCET TAB 5/325 MG PO PRN (07:30)
[2017-06-06] MEDS ORDERED: NS 1/2 1000 ML IV 1,000 ML IV ONE (08:29)
[2017-06-06] MEDS ORDERED: ZESTRIL TAB 20 MG ONE (08:31)
[2017-06-06] MEDS: PEPCID 20 MG IV PREMIX* 20 MG/50 ML BAG IV SCH (08:36)
[2017-06-06] MEDS: LEVAQUIN PREMIX IV 750 MG 750 MG/150 ML BAG IV SCH (08:36)
[2017-06-06] MEDS: NS 1/2 1000 ML IV 1,000 ML IV SCH (08:36)
[2017-06-06] MEDS: LOVENOX INJ 40 MG SYR SC SCH (08:36)
[2017-06-06] MEDS: ARIMIDEX PO SCH (08:37)
[2017-06-06] MEDS: ZANAFLEX PO PRN (08:37)
[2017-06-06] MEDS: ASPIRIN EC 81 MG PO SCH (08:37)
[2017-06-06] MEDS: TOPROL XL PO SCH (08:37)
[2017-06-06] MEDS: MILK OF MAGNESIA PO SCH (08:37)
[2017-06-06] MEDS: ROBITUSSIN DM PO SCH ×3 (08:37→17:20)
[2017-06-06] MEDS: HYDROCHLOROTHIAZIDE 12.5 MG CAP PO SCH (08:37)
[2017-06-06] MEDS: ZYLOPRIM PO SCH (08:38)
[2017-06-06] MEDS: ZESTRIL TAB 20 MG PO SCH (08:38)
[2017-06-06] MEDS ORDERED: DULCOLAX SUPPOSITORY 10 MG RECTAL SCH (12:04)
[2017-06-06] MEDS ORDERED: DULCOLAX SUPPOSITORY 10 MG RECTAL ONE (15:42)
[2017-06-06 17:15] VITALS: BP 159/95
[2017-06-06] MEDS ORDERED: CITROMA PO ONE (17:30)
== END 2017-06-06 18:00 | disposition home or self-care (01) ==
LOC: UNDOADMOB 11:27 → MED/SURG 11:27
PROVIDERS: ADMIT Internal Medicine; ATTEND Internal Medicine
DX: J20.8 Acute bronchitis due to other specified organisms (principal); I10 Essential (primary) hypertension; N40.0 Benign prostatic hyperplasia without lower urinary tract symptoms; M60.88 Other myositis, other site; R13.11 Dysphagia, oral phase; R10.11 Right upper quadrant pain; K21.9 Gastro-esophageal reflux disease without esophagitis; R94.4 Abnormal results of kidney function studies; Z85.46 Personal history of malignant neoplasm of prostate
CPT/HCPCS: 36415; 71045; 71046; 80053; 81001; 85025; 87040; 87070; 87205; 93005; 93010; 94640; 94760; A4218; A4222; S0028; S0170; G0378; J1650; J1956; J2543; J2920; J7620

== ENCOUNTER 2017-07-07 08:57 | Day surgery (SDC) | payer OTHER, BC ==
[2017-07-07] MEDS ORDERED: D5 LR 1000 ML 1,000 ML IV ONE (09:35)
[2017-07-07] MEDS ORDERED: DIPRIVAN VIAL 20 ML ONE (10:57)
[2017-07-07 11:39] VITALS: BP 140/82
== END 2017-07-07 11:38 | disposition home or self-care (01) ==
LOC: SURG1 08:57
PROVIDERS: ATTEND Internal Medicine Gastroenterology
PROC: 0DB68ZX Excision of Stomach, Via Natural or Artificial Opening Endoscopic, Diagnostic (ICD-10-PCS; principal; 2017-07-07 12:15)
PROC: 0DB88ZX Excision of Small Intestine, Via Natural or Artificial Opening Endoscopic, Diagnostic (ICD-10-PCS; principal; 2017-07-07 12:15)
PROC: 0D757ZZ Dilation of Esophagus, Via Natural or Artificial Opening (ICD-10-PCS; principal; 2017-07-07 12:15)
PROC: 0DJ08ZZ Inspection of Upper Intestinal Tract, Via Natural or Artificial Opening Endoscopic (ICD-10-PCS; principal; 2017-07-07 12:15)
DX: R13.19 Other dysphagia (principal); R10.13 Epigastric pain; K25.9 Gastric ulcer, unspecified as acute or chronic, without hemorrhage or perforation; K29.60 Other gastritis without bleeding; K20.8 Other esophagitis; K22.2 Esophageal obstruction; K21.9 Gastro-esophageal reflux disease without esophagitis
CPT/HCPCS: A4217; J3490; J7120

== ENCOUNTER 2018-07-31 14:21 | Observation (INO) ==
[2018-07-31 15:40] LABS: BASOPHILS % (AUTO) 0.2 % (0.2-1.0); EOSINOPHILS % (AUTO) 0.5 % (0.9-2.9); HEMATOCRIT 40.4 % (42.0-54.0); LYMPHOCYTES # (AUTO) 0.5 X10^3/uL (1.3-2.9); LYMPHOCYTES % (AUTO) 6.8 % (21.0-51.0); MEAN CORPUSCULAR HEMOGLOBIN 30.3 pg (27.0-34.0); MEAN CORPUSCULAR HGB CONC 34.7 g/dL (33.0-35.0); MEAN CORPUSCULAR VOLUME 87.5 fL (80.0-100.0); MEAN PLATELET VOLUME 7.7 fL (7.4-11.0); MONOCYTES # (AUTO) 0.4 x10^3/uL (0.3-0.8); MONOCYTES % (AUTO) 5.9 % (0.0-13.0); NEUTROPHILS # (AUTO) 6.1 x10^3/uL (2.2-4.8); NEUTROPHILS % (AUTO) 86.6 % (42.0-75.0); PLATELET COUNT 230 X10^3/uL (150.0-450.0); RED BLOOD COUNT 4.62 X10^6/uL (4.7-6.0); RED CELL DISTRIBUTION WIDTH 15.4 % (11.6-16.5)
[2018-07-31 15:51] LABS: ALANINE AMINOTRANSFERASE 34 Units/L (12-78); ALBUMIN 3.5 g/dL (3.4-5.0); ALKALINE PHOSPHATASE 87 Units/L (46-116); ASPARTATE AMINO TRANSFERASE 17 Units/L (15-37); BLOOD UREA NITROGEN 22 mg/dL (7-18); CALCIUM 9.1 mg/dL (8.5-10.1); CARBON DIOXIDE 26.5 mmol/L (21-32); CHLORIDE 105 mmol/L (98-107); COR NA(FOR HYPERGLY) 141 mmol/L (136-145); CREATININE 1.37 mg/dL (0.70-1.30); MAGNESIUM 1.7 mg/dL (1.7-2.9); SODIUM 141 mmol/L (136-145); TOTAL PROTEIN 7.5 g/dL (6.4-8.2); eGFR NON BLACK RACES 56 (>60)
[2018-07-31] MEDS: NS 1000 ML 1,000 ML IV SCH (16:00)
[2018-07-31] MEDS: CIPRO IV 400 MG PREMIX* 400 MG/200 ML IV.SOLN. IV SCH ×2 (16:00→22:25)
[2018-07-31] MEDS: TOPROL XL PO SCH (16:00)
[2018-07-31 16:06] LABS: CKMB % 0.5 % (<4); CREATINE KINASE 191 Units/L (39-308); CREATINE KINASE MB < 1.0 ng/mL (0-4.0); TROPONIN I < 0.02 ng/mL (0-1.5)
[2018-07-31 16:13] VITALS: BMI 38.0
[2018-07-31] MEDS ORDERED: K-DUR TAB 20 MEQ PO PRN (16:16)
[2018-07-31] MEDS ORDERED: POTASSIUM CHL 40 MEQ/NS 0.45% 500 ML IV PRN (16:16)
[2018-07-31] MEDS ORDERED: KLOR-CON PO PRN (16:16)
[2018-07-31] MEDS ORDERED: POTASSIUM CHLORIDE LIQ 20 MEQ UDC PO PRN (16:16)
[2018-07-31] MEDS ORDERED: MAGNESIUM SULFATE 1 GRAM/100 mL PREMIX 1 GM/100 ML BAG IV PRN (16:16)
[2018-07-31] MEDS ORDERED: POTASSIUM CHL 60 MEQ/NS 0.45% 500 ML IV PRN (16:16)
[2018-07-31] MEDS ORDERED: K-RIDER 10 MEQ/NS 100 ML 10 MEQ/100 ML BAG IV PRN (16:16)
[2018-07-31] MEDS ORDERED: MICRO K EXTEN CAP 10 MEQ PO PRN (16:16)
[2018-07-31 16:17] LABS: BILIRUBIN,URINE NEGATIVE (NEGATIVE); BLOOD/HEMOGLOBIN,URINE 4+ (NEGATIVE); GLUCOSE, URINE NEGATIVE (NEGATIVE); KETONES,URINE NEGATIVE (NEGATIVE); LEUKOCYTE ESTERASE ,URINE 1+ (NEGATIVE); NITRITES,URINE NEGATIVE (NEGATIVE); PROTEIN,URINE 2+ (NEGATIVE); UROBILINOGEN,URINE 1+ (NORMAL)
[2018-07-31 16:24] LABS: APPEARANCE,URINE SLIGHTLY HAZY (CLEAR); BACTERIA,URINE TRACE /HPF (NEGATIVE); COLOR,URINE DARK YELLOW (YELLOW); MUCUS,URINE FEW /HPF (NEGATIVE); SQUAMOUS EPITHELIAL CELL,UR RARE /HPF (NEGATIVE)
[2018-07-31 16:35] LABS: STOOL FOR WBC POSITIVE (NEGATIVE)
--- NOTE | 2018-07-31 16:39 | CT ---
HISTORY: Intractable dizziness with nausea and vomiting Study: CT brain without contrast Comparison: None Technique: Multiple axial images of the brain were obtained from the skull base to the vertex without administration of IV contrast. AEC was utilized. Findings: No acute intraparenchymal hemorrhage or mass can be identified. No extra-axial fluid collections are seen. No alteration in the attenuation of the brain parenchyma can be identified to suggest acute or subacute ischemic change. The ventricular system is symmetric and nondilated. There are postsurgical changes involving the left globe. IMPRESSION: No acute intracranial process can be identified. Reported By:
[2018-07-31] MEDS ORDERED: PERCOCET TAB 5/325 MG PO PRN (17:08)
--- NOTE | 2018-07-31 17:13 | DR.H&P ---
H&P - History & Physical for Day of: H&P Date: 07/31/18 - Chief Complaint Chief Complaint: N/V/D, DIZZINESS, CANNOT STAND UP, LEG WEAKNESS - History of Present Illness History of Present Illness: 63 [address] AGUIRRE OFFICE WITH CO INTRACTABLE N/V/D SINCE TUESDAY LAST WEEK. PT CO LATER ONST OF DIZZINESS, CANNOT STAND, LOWER EXTREMITY WEAKNESS. PT DENIES ANY BLOOD IN STOOL. PT HAD PMH OF CAD, HTN, PROSTATE CA, BPH. OA, L SPINE DDD. PT ADMITTED FOR TREATMENT AND EVALUATION OF ACUTE ILLNESS. - Past Medical History Past Medical History: Anxiety, Arthritis, Coronary Artery Disease, Gout, H ypertension Additional Medical History: hypercholesterolemia, prostate cancer - Past Surgical History Surgical History: Angioplasty/Stents, Appendectomy, Ortho Surgery, Other - Family History Family Medical History: MA, Coronary Artery Disease, Heart Failure, Sudden Cardiac , Hypertension - Social History Does patient currently use any type of tobacco product: No Have you used tobacco products in the last 12 months: No Type of Tobacco Use: None Does any household member use tobacco: No Alcohol Use: None Drug Use: Prescription Drugs - Medications Home Medications: No Known Drug Allergies Allergy (Verified 06/02/17 13:16) CONTINUE taking the following medications amlodipine 10 mg PO DAILY 07/31/18 [History] lisinopril 20 mg PO DAILY 07/31/18 [History] oxycodone-acetaminophen 1 tab PO PRN PRN 07/31/18 [History] ranitidine HCl 300 mg PO QHS 07/31/18 [History] ticagrelor [Brilinta] 9 mg PO BID 07/31/18 [History] zolpidem 10 mg PO HS 07/31/18 [History] - Review of Systems Constitutional: Weakness Eyes: No Symptoms Reported ENT: No Symptoms Reported Respiratory: Shortness of Breath Cardiovascular: No Symptoms Reported Gastrointestinal: Nausea, Vomiting, Abdominal Pain, Diarrhea Genitourinary: No Symptoms Reported Musculoskeletal: Back Pain Skin: No Symptoms Reported Neurological: Weakness (IN BOTH LEGS, DIZZINESS) - Physical Exam Vital Signs: Temperature 99.5 F Pulse Rate [Right Brachial] 75 Respiratory Rate 20 Blood Pressure [Right Arm] 155/81 Blood Pressure 156/87 O2 Sat by Pulse Oximetry 96 Oriented: Normal Eyes: Normal Ear: Normal Nose: Normal Throat: Normal Respiratory: RLL Diminished, LLL Diminished Cardiovascular: Tachycardia (RATE 110) Auscultation: Bowel Sounds: Normal Palpation: Normal Tenderness: Diffuse, Mild Skin: Decreased [place] Musculoskeletal: Back:Lumbar Psychiatric: Anxiety Affect: Anxious Speech Pattern: Clear, Appropriate - Assessment/Plan (1) Acute gastroenteritis Status: Acute Plan: ADMIT, CBC CMP MAG. UA, STOOL STUDIES. IV HYDRATION, IV CIPRO. BP CONTROL, CT HEAD, ABD SERIES (2) Vertigo Status: Acute (3) Hypertension Status: Acute - Allergies Allergies/Adverse Reactions: Allergies Allergy/AdvReac Type Severity Reaction Status Date / Time No Known Drug Allergies Allergy Verified 06/02/17 13:16
[2018-07-31] MEDS ORDERED: ZOFRAN INJ 4 MG VIAL ONE (17:56)
[2018-07-31] MEDS: ZOFRAN INJ 4 MG VIAL IVP PRN (18:00)
[2018-07-31] MEDS ORDERED: TYLENOL 325 MG TAB PO PRN (19:53)
[2018-07-31] MEDS: PEPCID 20 MG IV PREMIX* 20 MG/50 ML BAG IV SCH (20:20)
[2018-08-01 05:19] LABS: BASOPHILS % (AUTO) 0.2 % (0.2-1.0); EOSINOPHILS % (AUTO) 0.7 % (0.9-2.9); HEMATOCRIT 40.6 % (42.0-54.0); HEMOGLOBIN 13.9 g/dL (13.5-18.0); MEAN CORPUSCULAR HEMOGLOBIN 30.4 pg (27.0-34.0); MEAN CORPUSCULAR HGB CONC 34.3 g/dL (33.0-35.0); MEAN CORPUSCULAR VOLUME 88.7 fL (80.0-100.0); MEAN PLATELET VOLUME 8.4 fL (7.4-11.0); MONOCYTES # (AUTO) 0.6 x10^3/uL (0.3-0.8); MONOCYTES % (AUTO) 8.4 % (0.0-13.0); NEUTROPHILS # (AUTO) 5.1 x10^3/uL (2.2-4.8); NEUTROPHILS % (AUTO) 75.7 % (42.0-75.0); PLATELET COUNT 257 X10^3/uL (150.0-450.0); RED BLOOD COUNT 4.58 X10^6/uL (4.7-6.0); RED CELL DISTRIBUTION WIDTH 15.5 % (11.6-16.5); WHITE BLOOD COUNT 6.7 X10^3/uL (3.6-10.0)
[2018-08-01 05:29] LABS: ALANINE AMINOTRANSFERASE 38 Units/L (12-78); ALBUMIN 3.5 g/dL (3.4-5.0); ALKALINE PHOSPHATASE 90 Units/L (46-116); ASPARTATE AMINO TRANSFERASE 21 Units/L (15-37); BLOOD UREA NITROGEN 23 mg/dL (7-18); CALCIUM 8.7 mg/dL (8.5-10.1); CARBON DIOXIDE 24.3 mmol/L (21-32); CHLORIDE 104 mmol/L (98-107); COR NA(FOR HYPERGLY) 139 mmol/L (136-145); SODIUM 139 mmol/L (136-145); TOTAL PROTEIN 7.7 g/dL (6.4-8.2); eGFR NON BLACK RACES 55 (>60)
--- NOTE | 2018-08-01 06:57 | RAD ---
HISTORY: Abdominal pain, diarrhea Study: Flat and upright abdomen, PA chest Comparison: 06/06/2017 Findings: The heart is within normal limits in size. The chaya are normal. The lung valenzuela are clear. The abdominal gas pattern is nonspecific and nonobstructive. No pneumoperitoneum is identified. Colonic air-fluid levels are present. This can be seen with diarrheal illness. No abnormal masses or abnormal calcifications are identified. IMPRESSION: Nonobstructive bowel gas pattern Lungs clear Reported By:
[2018-08-01] MEDS ORDERED: PHARMACY CONSULT - DOSE _____ XX SCH (08:00)
[2018-08-01] MEDS: CIPRO IV 400 MG PREMIX* 400 MG/200 ML IV.SOLN. IV SCH ×2 (09:03→20:53)
[2018-08-01] MEDS: TOPROL XL PO SCH (09:03)
[2018-08-01] MEDS: PEPCID 20 MG IV PREMIX* 20 MG/50 ML BAG IV SCH (09:03)
[2018-08-01] MEDS ORDERED: ZESTRIL TAB 20 MG PO SCH ×3 (10:00→21:00)
[2018-08-01] MEDS ORDERED: NORVASC TAB 10 MG PO SCH ×2 (10:00→21:00)
[2018-08-01] MEDS ORDERED: ARIMIDEX PO SCH ×2 (10:00→21:00)
[2018-08-01] MEDS ORDERED: ZYLOPRIM PO SCH ×2 (10:00→21:00)
[2018-08-01] MEDS ORDERED: ZANTAC PO SCH (10:00)
[2018-08-01] MEDS: ZOFRAN INJ 4 MG VIAL IVP PRN ×2 (11:42→20:56)
[2018-08-01] MEDS: NEURONTIN CAP 300 MG PO SCH ×2 (13:46)
[2018-08-01] MEDS: NS 1000 ML 1,000 ML IV SCH (13:46)
[2018-08-01] MEDS: ZANAFLEX PO SCH ×2 (13:46→23:54)
--- NOTE | 2018-08-01 17:08 | PCM.PROG ---
Progress Note - Progress Note for Day of Date of Exam: 08/01/18 - Subjective Subjective: 63 BM ADMITTED ON 07/[address] AGUIRRE OFFICE WITH CO FEVER, N/V/D, DEHYDRATION AND LOWER EXTREMITY WEAKNESS AND DIZZINESS. PT CO "FEEL LIKE I GOT THE FLU". PT HAD ABD SERIES WITH AIR/FLUID COLON, PT STOOL STUDIES +BLOOD, WBC. PT WBC 6.7, HGB 13.9, BUN 23, CREAT 1.4. PT REPORTS HE FEELS A LITTLE BETTER AFTER GETTING IV FLUIDS, BUT CONTINUES WITH SEVERE DIARRHEA. PT HAD 101.4 FEVER LAST PMH, INFLUENZA NEGATIVE. PT CURRENTLY ON IV CIPRO, NPO AFTER MIDNIGHT FOR CT/ABD & PELVIS WITH CONTRAST. - Past Medical Family Social History Past Med/Fam/Surg Hx: No changes since H&P Allergies: Allergies No Known Drug Allergies Allergy (Verified 06/02/17 13:16) - Review of Systems ROS: No change since H&P - Vital Signs and I&O's Vital Signs: Temperature 97.8 F Pulse Rate [Right Brachial] 55 Respiratory Rate 20 Blood Pressure [Right Arm] 102/65 Blood Pressure 156/87 O2 Sat by Pulse Oximetry 96 Intake and Output: Intake & Output 07/30/18 07/31/18 08/01/18 08/02/18 11:59 11:59 11:59 11:59 Intake Total 1320 / 1320 120 / 120 Balance 1320 / 1320 120 / 120 - Physical Exam Oriented: Normal Eyes: Normal Ear: Normal Nose: Normal Throat: Normal Cardiovascular: Tachycardia (RATE 110) Auscultation: Bowel Sounds: Increased Tenderness: Diffuse, Mild Skin: Decreased Turgur Musculoskeletal: Back:Lumbar Psychiatric: Anxiety Affect: Anxious Speech Pattern: Clear, Appropriate - Laboratory and Diagnostics Result Diagrams: 08/01/18 04:35 08/01/18 04:35 Labs: 07/31/18 16:00 Stool Stool Culture - Preliminary 07/31/18 16:00 Stool - Final Laboratory WBC 6.7 X10^3/uL (3.6-10.0) 08/01/18 04:35 RBC 4.58 X10^6/uL (4.7-6.0) L 08/01/18 04:35 Hgb 13.9 g/dL (13.5-18.0) 08/01/18 04:35 Hct 40.6 % (42.0-54.0) L 08/01/18 04:35 MCV 88.7 fL (80.0-100.0) 08/01/18 04:35 MCH 30.4 pg (27.0-34.0) 08/01/18 04:35 MCHC 34.3 g/dL (33.0-35.0) 08/01/18 04:35 RDW 15.5 % (11.6-16.5) 08/01/18 04:35 Plt Count 257 X10^3/uL (150.0-450.0) 08/01/18 04:35 MPV 8.4 fL (7.4-11.0) 08/01/18 04:35 Neut % (Auto) 75.7 % (42.0-75.0) H 08/01/18 04:35 Lymph % (Auto) 15.0 % (21.0-51.0) L 08/01/18 04:35 [place] % (Auto) 8.4 % (0.0-13.0) 08/01/18 04:35 Eos % (Auto) 0.7 % (0.9-2.9) L 08/01/18 04:35 Baso % (Auto) 0.2 % (0.2-1.0) 08/01/18 04:35 Neut # (Auto) 5.1 x10^3/uL (2.2-4.8) H 08/01/18 04:35 Lymph # (Auto) 1.0 X10^3/uL (1.3-2.9) L 08/01/18 04:35 [place] # (Auto) 0.6 x10^3/uL (0.3-0.8) 08/01/18 04:35 Eos # (Auto) 0.0 x10^3/uL (0.0-0.2) 08/01/18 04:35 Baso # (Auto) 0.0 X10^3/uL (0.0-0.1) 08/01/18 04:35 Absolute Nucleated RBC 0.1 /100WBC 08/01/18 04:35 Sodium 139 mmol/L (136-145) 08/01/18 04:35 Corrected Sodium 139 mmol/L (136-145) 08/01/18 04:35 Potassium 3.6 mmol/L (3.5-5.1) 08/01/18 04:35 Chloride 104 mmol/L (98-107) 08/01/18 04:35 Carbon Dioxide 24.3 mmol/L (21-32) 08/01/18 04:35 BUN 23 mg/dL (7-18) H 08/01/18 04:35 Creatinine 1.40 mg/dL (0.70-1.30) H 08/01/18 04:35 Est GFR (MDRD) Af Amer > 60 (>60) 08/01/18 04:35 Est GFR (MDRD) Non-Af 55 (>60) L 08/01/18 04:35 Glucose 111 mg/dL (65-99) H 08/01/18 04:35 Calcium 8.7 mg/dL (8.5-10.1) 08/01/18 04:35 Corrected Calcium TNP 08/01/18 04:35 Magnesium 2.1 mg/dL (1.7-2.9) 08/01/18 04:35 Total Bilirubin 0.90 mg/dL (0.2-1.0) 08/01/18 04:35 AST 21 Units/L (15-37) 08/01/18 04:35 ALT 38 Units/L (12-78) 08/01/18 04:35 Alkaline Phosphatase 90 Units/L (46-116) 08/01/18 04:35 Creatine Kinase 191 Units/L (39-308) 07/31/18 15:30 CK-MB (CK-2) < 1.0 ng/mL (0-4.0) 07/31/18 15:30 CK/CKMB % Calc 0.5 % (<4) 07/31/18 15:30 Troponin I < 0.02 ng/mL (0-1.5) 07/31/18 15:30 Total Protein 7.7 g/dL (6.4-8.2) 08/01/18 04:35 Albumin 3.5 g/dL (3.4-5.0) 08/01/18 04:35 Globulin 4.2 g/dL (2.5-4.5) 08/01/18 04:35 Albumin/Globulin Ratio 0.8 Ratio (1.1-2.1) L 08/01/18 04:35 Specimen Type Clean catch urine 07/31/18 16:00 Urine Color Dark yellow (YELLOW) 07/31/18 16:00 Urine Appearance Slightly hazy (CLEAR) 07/31/18 16:00 Urine pH 5.0 (5.0 - 8.0) 07/31/18 16:00 Ur Specific [place] 1.010 (1.000-1.030) 07/31/18 16:00 Urine Protein 2+ (NEGATIVE) 07/31/18 16:00 Urine Glucose (UA) Negative (NEGATIVE) 07/31/18 16:00 Urine Ketones Negative (NEGATIVE) 07/31/18 16:00 Urine Occult Blood 4+ (NEGATIVE) 07/31/18 16:00 Urine Nitrite Negative (NEGATIVE) 07/31/18 16:00 Urine Bilirubin Negative (NEGATIVE) 07/31/18 16:00 Urine Urobilinogen 1+ (NORMAL) 07/31/18 16:00 Ur Leukocyte Esterase 1+ (NEGATIVE) 07/31/18 16:00 Urine RBC 10-20 /HPF (NONE SEEN) 07/31/18 16:00 Urine WBC 0-2 /HPF (NONE SEEN) 07/31/18 16:00 Ur Squamous Epith Cells Rare /HPF (NEGATIVE) 07/31/18 16:00 Urine Bacteria Trace /HPF (NEGATIVE) 07/31/18 16:00 Urine Mucus Few /HPF (NEGATIVE) 07/31/18 16:00 Ur Culture Indicated? No/not indicated 07/31/18 16:00 Stool Description 10g,yellow,unformed 07/31/18 16:00 Stl Occult Blood (IFOB) Positive (NEGATIVE) A 07/31/18 16:00 Stool for White Cells Positive (NEGATIVE) A 07/31/18 16:00 Stl C. diff Tox B Gene Negative (NEGATIVE) 07/31/18 16:00 Stl C. diff [id number] Negative (NEGATIVE) 07/31/18 16:00 Influenza Type A (PCR) Negative (NEGATIVE) 08/01/18 09:19 Influenza Type B (PCR) Negative (NEGATIVE) 08/01/18 09:19 - Plan (1) Acute gastroenteritis Status: Acute Plan: AM LABS. UA, STOOL STUDIES. IV HYDRATION, IV CIPRO. BP CONTROL, CT HEAD, ABD SERIES (2) Vertigo Status: Acute Plan: CT HEAD NEGATIVE, IMPROVING WITH HYDRATION (3) Hypertension Status: Acute (4) Occult blood positive stool Status: Acute Plan: HOLD BLOOD THINNER, TREAT DIARRHEAL ILLNESS, MONITOR HGB (5) Colitis Status: Acute
[2018-08-01] MEDS ORDERED: ZESTRIL TAB 20 MG ONE (19:27)
[2018-08-01] MEDS ORDERED: ASPIRIN EC 81 MG PO SCH (21:00)
[2018-08-01] MEDS: AMBIEN PO SCH ×2 (23:15→23:53)
[2018-08-01] MEDS: NEURONTIN CAP 400 MG PO SCH ×2 (23:16→23:53)
[2018-08-02] MEDS ORDERED: NS 100 ML IV 100 ML ONE (00:16)
[2018-08-02] MEDS: NS 1000 ML 1,000 ML IV SCH ×2 (02:54→03:52)
[2018-08-02 05:26] LABS: BASOPHILS % (AUTO) 0.1 % (0.2-1.0); EOSINOPHILS # (AUTO) 0.2 x10^3/uL (0.0-0.2); EOSINOPHILS % (AUTO) 2.3 % (0.9-2.9); HEMATOCRIT 35.8 % (42.0-54.0); HEMOGLOBIN 12.1 g/dL (13.5-18.0); LYMPHOCYTES # (AUTO) 1.7 X10^3/uL (1.3-2.9); LYMPHOCYTES % (AUTO) 22.3 % (21.0-51.0); MEAN CORPUSCULAR HEMOGLOBIN 30.3 pg (27.0-34.0); MEAN CORPUSCULAR HGB CONC 33.9 g/dL (33.0-35.0); MEAN CORPUSCULAR VOLUME 89.3 fL (80.0-100.0); MEAN PLATELET VOLUME 8.3 fL (7.4-11.0); MONOCYTES # (AUTO) 0.7 x10^3/uL (0.3-0.8); MONOCYTES % (AUTO) 9.3 % (0.0-13.0); NEUTROPHILS # (AUTO) 5.2 x10^3/uL (2.2-4.8); PLATELET COUNT 205 X10^3/uL (150.0-450.0); RED BLOOD COUNT 4.01 X10^6/uL (4.7-6.0); RED CELL DISTRIBUTION WIDTH 15.6 % (11.6-16.5); WHITE BLOOD COUNT 7.9 X10^3/uL (3.6-10.0)
[2018-08-02 05:38] LABS: ALANINE AMINOTRANSFERASE 30 Units/L (12-78); ALKALINE PHOSPHATASE 75 Units/L (46-116); ASPARTATE AMINO TRANSFERASE 17 Units/L (15-37); BLOOD UREA NITROGEN 19 mg/dL (7-18); CALCIUM 8.5 mg/dL (8.5-10.1); CARBON DIOXIDE 23.5 mmol/L (21-32); CHLORIDE 106 mmol/L (98-107); COR CA(FOR HYPOALB) 9.3 mg/dL (8.5-10.1); CREATININE 1.39 mg/dL (0.70-1.30); SODIUM 139 mmol/L (136-145); TOTAL PROTEIN 6.6 g/dL (6.4-8.2); eGFR NON BLACK RACES 55 (>60)
[2018-08-02] MEDS: ZANAFLEX PO SCH (05:43)
[2018-08-02] MEDS: NEURONTIN CAP 400 MG PO SCH (05:43)
[2018-08-02] MEDS: CIPRO IV 400 MG PREMIX* 400 MG/200 ML IV.SOLN. IV SCH (08:38)
[2018-08-02] MEDS: PEPCID 20 MG IV PREMIX* 20 MG/50 ML BAG IV SCH (08:38)
--- NOTE | 2018-08-02 08:42 | CT ---
HISTORY: Abdominal pain Study: CT abdomen pelvis with contrast Comparison: None Technique: Axial post-contrast images with coronal and sagittal reformats. Dose reduction procedures were used with mA/kv adjusted for body size. Findings: The lung bases are clear. Fairly extensive coronary artery calcifications are identified. The liver, spleen, adrenal glands, and pancreas are within normal limits. No opaque stones are visible within the gallbladder. The kidneys are unobstructed and without stones or masses. No ureteral calculi are identified. Calcific atherosclerotic changes present in a nondilated abdominal aorta. No intraperitoneal or retroperitoneal lymphadenopathy of significance is identified. The appendix is not identified with absolute certainty. There are no secondary signs of appendicitis present. There are no findings suggestive of enteritis, diverticulitis, or colitis. Examination of the pelvis demonstrated no evidence for pelvic masses, pelvic fluid, or pelvic lymphadenopathy. No bladder abnormality is identified. IMPRESSION: No acute intra-abdominal or intrapelvic abnormality No definite evidence for enteritis or colitis Reported By:
[2018-08-02] MEDS ORDERED: ASPIRIN EC 81 MG PO SCH (09:00)
[2018-08-02 13:14] VITALS: BP 120/61
[2018-08-02] MEDS: TOPROL XL PO SCH (14:03)
== END 2018-08-02 14:30 | disposition home or self-care (01) ==
LOC: MED/SURG
PROVIDERS: ADMIT Internal Medicine; ATTEND Internal Medicine
DX: I95.9 Hypotension, unspecified; K52.89 Other specified noninfective gastroenteritis and colitis; Z86.79 Personal history of other diseases of the circulatory system; R11.2 Nausea with vomiting, unspecified; M51.36 Other intervertebral disc degeneration, lumbar region; R19.7 Diarrhea, unspecified; R19.5 Other fecal abnormalities; I10 Essential (primary) hypertension; R42 Dizziness and giddiness; R53.1 Weakness
CPT/HCPCS: 36415; 70450; 74022; 74177; 80053; 81001; 82270; 82550; 82553; 83630; 83735; 84484; 85025; 87040; 87045; 87427; 87449; 87493; 87502; 87899; 93005; 94760; 96367; 96372; 96374; 97110; 97162; 97166; 97530; 97535; A4222; S0028; S0170; G0378; J0744; J2405; J3490; J7030; J7050

== ENCOUNTER 2019-08-13 15:44 | Observation (INO) ==
[2019-08-13] MEDS ORDERED: ZOFRAN INJ 4 MG VIAL 16 MG, ATIVAN INJ 2 MG VIAL 1 MG, DECADRON INJ 10 MG in NS 50 ML I... IV ONE (17:33)
[2019-08-13] MEDS ORDERED: FIORICET TAB PO ONE (17:34)
[2019-08-13] MEDS ORDERED: TORADOL 15 MG VIAL IVP ONE (17:37)
[2019-08-13] MEDS ORDERED: ZANAFLEX PO PRN (17:38)
--- NOTE | 2019-08-13 17:41 | DR.H&P ---
H&P - History & Physical for Day of: H&P Date: 08/13/19 - Chief Complaint Chief Complaint: intractable PACHECO, weakness, low heart rate - History of Present Illness History of Present Illness: PT IS 64 BM DIRECT ADMIT FROM DR CHEUNG OFFICE WITH CO INTRACTABLE PACHECO SINCE LAST TUESDAY FOLLOWING A MYELOGRAM. PT HAD SINUS BRADYCARDIA WITH RATE 44-48 INOFFICE. PT WAS VERY WEAK. BP 108/60. PT TAKE BB AT HOME, WHICH HE ARE HOLDING. PT CO NECK AND HEAD PAIN NOT RELIEVED WITH REST AND PERCOCET. PT HAS PMH OF GOUT, HTN, CAD, GERD, DDD. PT ADMITTED FOR TREATMENT AND EVALUATION OF ACUTE ILLNESS. PT DENIES ANY FEVER OR COVID SYMPTOMS INCLUDING SOB OR CCC. - Past Medical History Past Medical History: Anxiety, Arthritis, Coronary Artery Disease, Gout, Hypertension Additional Medical History: hypercholesterolemia, prostate cancer - Past Surgical History Surgical History: Angioplasty/Stents, Appendectomy, Ortho Surgery, Other - Family History Family Medical History: [place], Coronary Artery Disease, Heart Failure, Sudden Cardiac , Hypertension - Social History Does patient currently use any type of tobacco product: No Have you used tobacco products in the last 12 months: No Type of Tobacco Use: None Does any household member use tobacco: No Alcohol Use: None Drug Use: None Risks, benefits, and alternatives of opioids discussed: No Prescription drug monitoring program results: PDMP reviewed and no concerns identified - Medications Home Medications: No Known Drug Allergies Allergy (Verified 06/02/17 13:16) - Review of Systems Constitutional: Weakness Eyes: No Symptoms Reported ENT: No Symptoms Reported Respiratory: No Symptoms Reported Cardiovascular: Edema, Light Headedness. denies: Chest Pain Gastrointestinal: Nausea Genitourinary: No Symptoms Reported Musculoskeletal: Neck Pain Skin: No Symptoms Reported Neurological: Other (DIZZINESS, HEADACHE) - Physical Exam Vital Signs: Temperature 97.5 F Pulse Rate [] 51 Respiratory Rate 22 Blood Pressure [] 130/73 Blood Pressure [Right Arm] 120/61 O2 Sat by Pulse Oximetry 99 Oriented: Normal Eyes: Normal Ear: Normal Nose: Normal Throat: Normal Respiratory: Clear Throughout Cardiovascular: Bradycardia, Edema : Normal Auscultation: Bowel Sounds: Normal Palpation: Normal Tenderness: Normal Skin: Decreased Turgur Musculoskeletal: Back:Thoracic, Back:Lumbar, Tender (LOCALIZED TO C SPINE) Psychiatric: Anxiety Affect: Anxious Speech Pattern: Clear, Appropriate - Assessment/Plan (1) Bradycardia Status: Acute Plan: ADMIT, ADMISSION LABS INCLUDING CBC MAG CMP CE. CXR ON ADMISSION. IV HYDRATION, PAIN CONTROL. CT HEAD W/O DUE TO INTRACTABLE PACHECO. BP MONITORING, HOLD METOPROLOL DUE TO [place] (2) Intractable headache Status: Acute (3) Cervical spine degeneration Status: Acute (4) CAD (coronary artery disease) Status: Acute - Allergies Allergies/Adverse Reactions: Allergies Allergy/AdvReac Type Severity Reaction Status Date / Time No Known Drug Allergies Allergy Verified 06/02/17 13:16
--- NOTE | 2019-08-13 18:06 | RAD ---
HISTORYINTRACTABLE PACHECO, BRADYCARDIASTUDYCHEST, PA/LAT ADULTCOMPARISONNoneFINDINGSThe trachea is midline. The cardiac silhouette is unremarkable . The lungs are clear without focal infiltrate or effusion. The bony thorax is unremarkable.IMPRESSIONNo acute cardiopulmonary disease.Electronically signed by: CHERYL LAGUNAS (Aug 13, 2019 18:04:50)
--- NOTE | 2019-08-13 18:07 | CT ---
HISTORY:HeadachesStudy: CT brain without contrastComparison:07/31/2018Technique:Multiple axial images of the brain were obtained without administration of IV contrast. Dose reduction techniques including Automated Exposure Control (AEC) and adjustment of mA and kV were utilized.Findings:There is mild cerebral volume loss with nonspecific white matter hypoattenuation suggestive of chronic microvascular ischemic changes. No evidence of acute hemorrhage, midline shift, mass effect or abnormal extra-axial fluid collection. The ventricular system is symmetric and nondilated.The soft tissues and osseous structures are unremarkable. The visualized paranasal sinuses are clear. There postsurgical changes of the left globe.IMPRESSION:1. Mild chronic cerebral volume loss and nonspecific white matter changes as described without acute intracranial abnormality.Electronically signed by: VERITO TURK (Aug 13, 2019 18:05:24)
[2019-08-13] MEDS: NS 1000 ML 1,000 ML IV SCH (18:08)
[2019-08-13 18:10] VITALS: BMI 39.2
[2019-08-13 18:15] LABS: BASOPHILS # (AUTO) 0.1 X10^3/uL (0.0-0.1); BASOPHILS % (AUTO) 0.8 % (0.2-1.0); EOSINOPHILS # (AUTO) 0.1 x10^3/uL (0.0-0.2); EOSINOPHILS % (AUTO) 1.9 % (0.9-2.9); HEMATOCRIT 38.6 % (42.0-54.0); HEMOGLOBIN 13.1 g/dL (13.5-18.0); LYMPHOCYTES # (AUTO) 2.2 X10^3/uL (1.3-2.9); LYMPHOCYTES % (AUTO) 30.7 % (21.0-51.0); MEAN CORPUSCULAR HEMOGLOBIN 29.4 pg (27.0-34.0); MEAN CORPUSCULAR HGB CONC 33.8 g/dL (33.0-35.0); MEAN CORPUSCULAR VOLUME 86.7 fL (80.0-100.0); MONOCYTES # (AUTO) 0.7 x10^3/uL (0.3-0.8); MONOCYTES % (AUTO) 9.3 % (0.0-13.0); NEUTROPHILS # (AUTO) 4.1 x10^3/uL (2.2-4.8); NEUTROPHILS % (AUTO) 57.3 % (42.0-75.0); PLATELET COUNT 248 X10^3/uL (150.0-450.0); RED BLOOD COUNT 4.45 X10^6/uL (4.7-6.0); RED CELL DISTRIBUTION WIDTH 13.5 % (11.6-16.5); WHITE BLOOD COUNT 7.2 X10^3/uL (3.6-10.0)
[2019-08-13 18:28] LABS: ALANINE AMINOTRANSFERASE 28 Units/L (12-78); ALBUMIN 3.6 g/dL (3.4-5.0); ALKALINE PHOSPHATASE 101 Units/L (46-116); ASPARTATE AMINO TRANSFERASE 14 Units/L (15-37); BLOOD UREA NITROGEN 13 mg/dL (7-18); CARBON DIOXIDE 27.9 mmol/L (21-32); CHLORIDE 104 mmol/L (98-107); CREATININE 1.27 mg/dL (0.70-1.30); MAGNESIUM 1.8 mg/dL (1.7-2.9); SODIUM 139 mmol/L (136-145); TOTAL PROTEIN 7.5 g/dL (6.4-8.2); eGFR NON BLACK RACES > 60 (>60)
[2019-08-13 18:48] LABS: CKMB % 0.6 % (<4); CREATINE KINASE 174 Units/L (39-308); CREATINE KINASE MB 1.1 ng/mL (0-4.0); TROPONIN I < 0.02 ng/mL (0-1.5)
[2019-08-14] MEDS: NS 1000 ML 1,000 ML IV SCH ×2 (05:55→08:15)
[2019-08-14 06:05] LABS: BASOPHILS % (AUTO) 0.2 % (0.2-1.0); HEMOGLOBIN 13.4 g/dL (13.5-18.0); LYMPHOCYTES # (AUTO) 0.7 X10^3/uL (1.3-2.9); LYMPHOCYTES % (AUTO) 12.4 % (21.0-51.0); MEAN CORPUSCULAR HEMOGLOBIN 29.8 pg (27.0-34.0); MEAN CORPUSCULAR HGB CONC 34.5 g/dL (33.0-35.0); MEAN CORPUSCULAR VOLUME 86.4 fL (80.0-100.0); MEAN PLATELET VOLUME 8.2 fL (7.4-11.0); MONOCYTES # (AUTO) 0.1 x10^3/uL (0.3-0.8); MONOCYTES % (AUTO) 1.8 % (0.0-13.0); NEUTROPHILS # (AUTO) 4.8 x10^3/uL (2.2-4.8); NEUTROPHILS % (AUTO) 85.6 % (42.0-75.0); PLATELET COUNT 242 X10^3/uL (150.0-450.0); RED BLOOD COUNT 4.51 X10^6/uL (4.7-6.0); RED CELL DISTRIBUTION WIDTH 13.6 % (11.6-16.5); WHITE BLOOD COUNT 5.7 X10^3/uL (3.6-10.0)
[2019-08-14 06:17] LABS: ALANINE AMINOTRANSFERASE 27 Units/L (12-78); ALBUMIN 3.2 g/dL (3.4-5.0); ALKALINE PHOSPHATASE 95 Units/L (46-116); ASPARTATE AMINO TRANSFERASE 15 Units/L (15-37); BLOOD UREA NITROGEN 15 mg/dL (7-18); CARBON DIOXIDE 25.8 mmol/L (21-32); CHLORIDE 103 mmol/L (98-107); COR CA(FOR HYPOALB) 9.6 mg/dL (8.5-10.1); COR NA(FOR HYPERGLY) 139 mmol/L (136-145); SODIUM 138 mmol/L (136-145); TOTAL PROTEIN 7.3 g/dL (6.4-8.2); eGFR NON BLACK RACES 59 (>60)
[2019-08-14] MEDS ORDERED: DILAUDID INJ IVP NR (11:21)
[2019-08-14] MEDS ORDERED: LOVENOX INJ 40 MG SYR SC SCH (12:00)
[2019-08-14] MEDS ORDERED: XYLOCAINE 1 % (PLAIN) ONE (13:04)
--- NOTE | 2019-08-14 13:24 | PCM.PROG ---
Progress Note - Progress Note for Day of Date of Exam: 08/14/19 (Consulted for epidural blood patch due to patients c/o h eadache for 6 days s/p myelogram. Epidural blood patch performed using sterile technique. Patient tolerated well. No anesthestic complications noted. ) - Past Medical Family Social History Allergies: Allergies No Known Drug Allergies Allergy (Verified 06/02/17 13:16) - Vital Signs and I&O's Vital Signs: Temperature 98.2 F Pulse Rate [Left Brachial] 57 Respiratory Rate 18 Blood Pressure [Left Arm] 142/78 Blood Pressure [Right Arm] 138/65 O2 Sat by Pulse Oximetry 97 Intake and Output: Intake & Output 08/11/19 08/12/19 08/13/19 08/14/19 23:59 23:59 23:59 23:59 Intake Total 1724 / 1724 600 / 600 Output Total 225 / 225 Balance 1499 / 1499 600 / 600 - Physical Exam Oriented: Normal Eyes: Normal Ear: Normal Nose: Normal Throat: Normal Cardiovascular: Bradycardia, Edema : Normal Auscultation: Bowel Sounds: Normal Tenderness: Normal Skin: Decreased Turgur Musculoskeletal: Back:Thoracic, Back:Lumbar, Tender (LOCALIZED TO C SPINE) Psychiatric: Anxiety Affect: Anxious Speech Pattern: Clear, Appropriate - Laboratory and Diagnostics Result Diagrams: 08/14/19 05:21 08/14/19 05:21 Labs: Laboratory WBC 5.7 X10^3/uL (3.6-10.0) 08/14/19 05:21 RBC 4.51 X10^6/uL (4.7-6.0) L 08/14/19 05:21 Hgb 13.4 g/dL (13.5-18.0) L 08/14/19 05:21 Hct 39.0 % (42.0-54.0) L 08/14/19 05:21 MCV 86.4 fL (80.0-100.0) 08/14/19 05:21 MCH 29.8 pg (27.0-34.0) 08/14/19 05:21 MCHC 34.5 g/dL (33.0-35.0) 08/14/19 05:21 RDW 13.6 % (11.6-16.5) 08/14/19 05:21 Plt Count 242 X10^3/uL (150.0-450.0) 08/14/19 05:21 MPV 8.2 fL (7.4-11.0) 08/14/19 05:21 Neut % (Auto) 85.6 % (42.0-75.0) H 08/14/19 05:21 Lymph % (Auto) 12.4 % (21.0-51.0) L 08/14/19 05:21 [place] % (Auto) 1.8 % (0.0-13.0) 08/14/19 05:21 Eos % (Auto) 0.0 % (0.9-2.9) L 08/14/19 05:21 Baso % (Auto) 0.2 % (0.2-1.0) 08/14/19 05:21 Neut # (Auto) 4.8 x10^3/uL (2.2-4.8) 08/14/19 05:21 Lymph # (Auto) 0.7 X10^3/uL (1.3-2.9) L 08/14/19 05:21 [place] # (Auto) 0.1 x10^3/uL (0.3-0.8) L 08/14/19 05:21 Eos # (Auto) 0.0 x10^3/uL (0.0-0.2) 08/14/19 05:21 Baso # (Auto) 0.0 X10^3/uL (0.0-0.1) 08/14/19 05:21 Absolute Nucleated RBC 0.0 /100WBC 08/14/19 05:21 Sodium 138 mmol/L (136-145) 08/14/19 05:21 Corrected Sodium 139 mmol/L (136-145) 08/14/19 05:21 Potassium 4.2 mmol/L (3.5-5.1) 08/14/19 05:21 Chloride 103 mmol/L (98-107) 08/14/19 05:21 Carbon Dioxide 25.8 mmol/L (21-32) 08/14/19 05:21 BUN 15 mg/dL (7-18) 08/14/19 05:21 Creatinine 1.30 mg/dL (0.70-1.30) 08/14/19 05:21 Est GFR (MDRD) Af Amer > 60 (>60) 08/14/19 05:21 Est GFR (MDRD) Non-Af 59 (>60) 08/14/19 05:21 Glucose 148 mg/dL (65-99) H 08/14/19 05:21 Calcium 9.0 mg/dL (8.5-10.1) 08/14/19 05:21 Corrected Calcium 9.6 mg/dL (8.5-10.1) 08/14/19 05:21 Magnesium 1.8 mg/dL (1.7-2.9) 08/13/19 17:57 Total Bilirubin 0.50 mg/dL (0.2-1.0) 08/14/19 05:21 AST 15 Units/L (15-37) 08/14/19 05:21 ALT 27 Units/L (12-78) 08/14/19 05:21 Alkaline Phosphatase 95 Units/L (46-116) 08/14/19 05:21 Creatine Kinase 174 Units/L (39-308) 08/13/19 17:57 CK-MB (CK-2) 1.1 ng/mL (0-4.0) 08/13/19 17:57 CK/CKMB % Calc 0.6 % (<4) 08/13/19 17:57 Troponin I < 0.02 ng/mL (0-1.5) 08/13/19 17:57 Total Protein 7.3 g/dL (6.4-8.2) 08/14/19 05:21 Albumin 3.2 g/dL (3.4-5.0) L 08/14/19 05:21 Globulin 4.1 g/dL (2.5-4.5) 08/14/19 05:21 Albumin/Globulin Ratio 0.8 Ratio (1.1-2.1) L 08/14/19 05:21
[2019-08-14] MEDS ORDERED: NEURONTIN CAP 400 MG PO ONE (13:34)
[2019-08-14] MEDS: NEURONTIN CAP 400 MG PO SCH ×2 (13:37→21:59)
[2019-08-14] MEDS ORDERED: NEURONTIN CAP 300 MG PO SCH (14:00)
[2019-08-14] MEDS: PERCOCET TAB 5/325 MG PO PRN (16:35)
[2019-08-14] MEDS: MAG-OX TAB PO SCH (18:11)
[2019-08-14] MEDS ORDERED: MAG-OX TAB ONE (18:12)
[2019-08-14] MEDS ORDERED: FLOMAX ONE (19:16)
[2019-08-14] MEDS ORDERED: FLOMAX PO SCH (21:00)
[2019-08-15] MEDS: NS 1000 ML 1,000 ML IV SCH ×2 (02:12→12:16)
[2019-08-15] MEDS: PERCOCET TAB 5/325 MG PO PRN (05:25)
[2019-08-15] MEDS: NEURONTIN CAP 400 MG PO SCH ×2 (05:25→13:33)
[2019-08-15 06:05] LABS: ALANINE AMINOTRANSFERASE 27 Units/L (12-78); ALBUMIN 2.9 g/dL (3.4-5.0); ALKALINE PHOSPHATASE 87 Units/L (46-116); ASPARTATE AMINO TRANSFERASE 11 Units/L (15-37); BASOPHILS % (AUTO) 0.2 % (0.2-1.0); BLOOD UREA NITROGEN 14 mg/dL (7-18); CALCIUM 8.3 mg/dL (8.5-10.1); CARBON DIOXIDE 28.3 mmol/L (21-32); CHLORIDE 104 mmol/L (98-107); COR CA(FOR HYPOALB) 9.2 mg/dL (8.5-10.1); COR NA(FOR HYPERGLY) 140 mmol/L (136-145); CREATININE 1.19 mg/dL (0.70-1.30); EOSINOPHILS # (AUTO) 0.1 x10^3/uL (0.0-0.2); EOSINOPHILS % (AUTO) 0.8 % (0.9-2.9); HEMATOCRIT 36.2 % (42.0-54.0); HEMOGLOBIN 12.4 g/dL (13.5-18.0); LYMPHOCYTES # (AUTO) 1.8 X10^3/uL (1.3-2.9); LYMPHOCYTES % (AUTO) 23.3 % (21.0-51.0); MEAN CORPUSCULAR HEMOGLOBIN 29.9 pg (27.0-34.0); MEAN CORPUSCULAR HGB CONC 34.1 g/dL (33.0-35.0); MEAN CORPUSCULAR VOLUME 87.5 fL (80.0-100.0); MEAN PLATELET VOLUME 8.2 fL (7.4-11.0); MONOCYTES # (AUTO) 0.6 x10^3/uL (0.3-0.8); MONOCYTES % (AUTO) 7.5 % (0.0-13.0); NEUTROPHILS # (AUTO) 5.2 x10^3/uL (2.2-4.8); NEUTROPHILS % (AUTO) 68.2 % (42.0-75.0); PLATELET COUNT 235 X10^3/uL (150.0-450.0); RED BLOOD COUNT 4.14 X10^6/uL (4.7-6.0); RED CELL DISTRIBUTION WIDTH 13.4 % (11.6-16.5); SODIUM 139 mmol/L (136-145); TOTAL PROTEIN 6.6 g/dL (6.4-8.2); WHITE BLOOD COUNT 7.7 X10^3/uL (3.6-10.0); eGFR NON BLACK RACES > 60 (>60)
[2019-08-15] MEDS: MAG-OX TAB PO SCH (06:06)
[2019-08-15] MEDS ORDERED: POTASSIUM CHL 60 MEQ/NS 0.45% 500 ML IV PRN (06:25)
[2019-08-15] MEDS ORDERED: MAGNESIUM SULFATE 1 GRAM/100 mL PREMIX 1 GM/100 ML BAG IV PRN (06:25)
[2019-08-15] MEDS ORDERED: KLOR-CON PO PRN (06:25)
[2019-08-15] MEDS ORDERED: K-RIDER 10 MEQ/NS 100 ML 10 MEQ/100 ML BAG IV PRN (06:25)
[2019-08-15] MEDS ORDERED: POTASSIUM CHLORIDE LIQ 20 MEQ UDC PO PRN (06:25)
[2019-08-15] MEDS ORDERED: K-DUR TAB 20 MEQ PO PRN (06:25)
[2019-08-15] MEDS ORDERED: MICRO K EXTEN CAP 10 MEQ PO PRN (06:25)
[2019-08-15] MEDS ORDERED: POTASSIUM CHL 40 MEQ/NS 0.45% 500 ML IV PRN (06:25)
[2019-08-15] MEDS ORDERED: ZESTRIL TAB 20 MG ONE (07:34)
[2019-08-15] MEDS ORDERED: ZYLOPRIM ONE (07:47)
[2019-08-15] MEDS ORDERED: ZYLOPRIM PO SCH (09:00)
[2019-08-15] MEDS ORDERED: ZESTRIL TAB 20 MG PO SCH (09:00)
[2019-08-15] MEDS ORDERED: FIORICET TAB PO PRN (09:33)
[2019-08-15] MEDS ORDERED: FIORICET TAB PO ONE (09:52)
[2019-08-15 11:23] VITALS: BP 139/67
[2019-08-15] MEDS ORDERED: TORADOL 15 MG VIAL IVP ONE (13:45)
[2019-08-15] MEDS ORDERED: TORADOL 15 MG VIAL ONE (14:02)
== END 2019-08-15 15:00 | disposition home or self-care (01) ==
LOC: MED/SURG
PROVIDERS: ADMIT Internal Medicine; ATTEND Internal Medicine
DX: M50.30 Other cervical disc degeneration, unspecified cervical region; G97.1 Other reaction to spinal and lumbar puncture; R51 Headache; Z98.890 Other specified postprocedural states; I10 Essential (primary) hypertension; I25.10 Atherosclerotic heart disease of native coronary artery without angina pectoris; F41.8 Other specified anxiety disorders; R00.1 Bradycardia, unspecified; R53.1 Weakness
CPT/HCPCS: 36415; 70450; 71020; 71046; 80053; 82550; 82553; 83735; 84484; 85025; 93005; 94760; A4216; G0378; J1100; J1170; J1885; J2060; J2405; J7030; J7050

== ENCOUNTER 2020-04-27 17:45 | Inpatient (IN) ==
[2020-04-27 17:52] VITALS: BMI 37.5
[2020-04-27 19:08] LABS: BASOPHILS # (AUTO) 0.1 X10^3/uL (0.0-0.1); BASOPHILS % (AUTO) 0.4 % (0.2-1.0); EOSINOPHILS # (AUTO) 0.1 x10^3/uL (0.0-0.2); EOSINOPHILS % (AUTO) 0.7 % (0.9-2.9); HEMATOCRIT 38.1 % (42.0-54.0); HEMOGLOBIN 12.9 g/dL (13.5-18.0); LYMPHOCYTES # (AUTO) 1.2 X10^3/uL (1.3-2.9); LYMPHOCYTES % (AUTO) 10.7 % (21.0-51.0); MEAN CORPUSCULAR HEMOGLOBIN 28.9 pg (27.0-34.0); MEAN CORPUSCULAR HGB CONC 33.8 g/dL (33.0-35.0); MEAN CORPUSCULAR VOLUME 85.6 fL (80.0-100.0); MEAN PLATELET VOLUME 8.1 fL (7.4-11.0); MONOCYTES # (AUTO) 0.6 x10^3/uL (0.3-0.8); MONOCYTES % (AUTO) 5.5 % (0.0-13.0); NEUTROPHILS # (AUTO) 9.5 x10^3/uL (2.2-4.8); NEUTROPHILS % (AUTO) 82.7 % (42.0-75.0); PLATELET COUNT 301 X10^3/uL (150.0-450.0); RED BLOOD COUNT 4.46 X10^6/uL (4.7-6.0); RED CELL DISTRIBUTION WIDTH 13.4 % (11.6-16.5); WHITE BLOOD COUNT 11.5 X10^3/uL (3.6-10.0)
[2020-04-27 19:19] LABS: ALANINE AMINOTRANSFERASE 56 Units/L (12-78); ALBUMIN 3.4 g/dL (3.4-5.0); ALKALINE PHOSPHATASE 102 Units/L (46-116); ASPARTATE AMINO TRANSFERASE 31 Units/L (15-37); BLOOD UREA NITROGEN 16 mg/dL (7-18); CALCIUM 9.4 mg/dL (8.5-10.1); CARBON DIOXIDE 28.3 mmol/L (21-32); CHLORIDE 102 mmol/L (98-107); COR NA(FOR HYPERGLY) 142 mmol/L (136-145); CREATININE 1.55 mg/dL (0.70-1.30); SODIUM 141 mmol/L (136-145); TOTAL PROTEIN 8.3 g/dL (6.4-8.2); eGFR NON BLACK RACES 48 (>60)
--- NOTE | 2020-04-27 20:10 | DR.GENAD ---
HPI Time Seen Time Seen by Provider: 04/27/20 18:23 PCP Primary Care Physician: SHAY PARADA HPI Comment HPI Comment: Patient presents with complaint of fever, chills, body aches. Notes that his daughter who lives with him has had the flu. Patient also notes that he had surgery on his neck a few weeks ago, so he is concerned about the possibility of infection. Complaint/Symptoms Chief Complaint:: PATIENT CAME TO ER REPORTS HAVING FEVER, SWELLING IN DIFFERENT AREAS OF HIS BODY, AND ACHING ALL OVER. PATIENT HAD SURGERY 2 WEEKS AGO ON NECK. COVID-19 Coronavirus risk:travel/contact w/high risk person: No Has patient experienced Coronavirus symptoms: No Coronavirus symptoms experienced: Fever Source History Provided: Patient and Family Member Mode of Arrival Mode of Arrival: Ambulatory Timing Onset of Chief Complaint: 04/13/20 PMH PMH Past Medical History: Yes Past Medical History: Gout and Hypertension Past Surgical History: Yes Surgical History: Appendectomy Past Surgical History Comment: HEART STENT, CERVICAL, LEFT ANKLE, PROSTATECTOMY Family History History of Family Medical Conditions: Yes Family Medical History: Diabetes Mellitus, Cancer, [place] and Hypertension Family Medical History Comment: CVA Social History Alcohol Use: None Do you use any recreational Drugs:: No Lives With: Spouse Lives Where: Home Travel Risk Coronavirus risk:travel/contact w/high risk person: No Has patient experienced Coronavirus symptoms: No Coronavirus symptoms experienced: Fever Infectious screening In the last 2 months have you had wt loss of >10#?: NO Have you had fever, night sweats or hemotysis?: No Have you traveled outside the country in the last 6 months?: No Isolation: Standard ROS Review of Systems Constitutional: See HPI, Chills, Fever and Malaise All Other Systems: Reviewed and Negative PE Vital Signs Vitals: Temperature 99.5 F Pulse Rate 100 Respiratory Rate 20 Blood Pressure [Left Arm] 139/67 Blood Pressure 128/60 O2 Sat by Pulse Oximetry 96 General Limitations: No Limitations General Appearance: Alert and In No Apparent Distress Head Head Exam: Normal Inspection, Atraumatic and Normocephalic Eyes Eye exam: Normal Appearance and EOMI ENT ENT Exam: Normal Exam Neck Neck Exam: Normal Inspection and Other (cervical surgical incision is clean, dry, intact) Chest Chest Inspection: Normal Inspection and Symmetric Chest Wall Rise Respiratory Respiratory Exam: Bilateral: Rhonchi Cardiovascular Cardiovascular Exam: Regular Rate, Normal Rhythm and Normal Heart Sounds Extremities Extremities Exam: Normal Inspection Neurologic Neurological Exam: Alert and Oriented X3 Psychiatric Psychiatric Exam: Normal Affect and Normal Mood Skin Skin Exam: Warm, Dry and Intact COURSE Reevaluation 1st: Unchanged Consultation Consultation Comments: spoke with Dr. Sloan who accepts patient for admission ROR Labs Reviewed Laboratory Results Reviewed?: Yes Result Diagrams: 04/27/20 18:45 04/27/20 18:45 Laboratory: WBC 11.5 X10^3/uL (3.6-10.0) H 04/27/20 18:45 RBC 4.46 X10^6/uL (4.7-6.0) L 04/27/20 18:45 Hgb 12.9 g/dL (13.5-18.0) L 04/27/20 18:45 Hct 38.1 % (42.0-54.0) L 04/27/20 18:45 MCV 85.6 fL (80.0-100.0) 04/27/20 18:45 MCH 28.9 pg (27.0-34.0) 04/27/20 18:45 MCHC 33.8 g/dL (33.0-35.0) 04/27/20 18:45 RDW 13.4 % (11.6-16.5) 04/27/20 18:45 Plt Count 301 X10^3/uL (150.0-450.0) 04/27/20 18:45 MPV 8.1 fL (7.4-11.0) 04/27/20 18:45 Neut % (Auto) 82.7 % (42.0-75.0) H 04/27/20 18:45 Lymph % (Auto) 10.7 % (21.0-51.0) L 04/27/20 18:45 [place] % (Auto) 5.5 % (0.0-13.0) 04/27/20 18:45 Eos % (Auto) 0.7 % (0.9-2.9) L 04/27/20 18:45 Baso % (Auto) 0.4 % (0.2-1.0) 04/27/20 18:45 Neut # (Auto) 9.5 x10^3/uL (2.2-4.8) H 04/27/20 18:45 Lymph # (Auto) 1.2 X10^3/uL (1.3-2.9) L 04/27/20 18:45 [place] # (Auto) 0.6 x10^3/uL (0.3-0.8) 04/27/20 18:45 Eos # (Auto) 0.1 x10^3/uL (0.0-0.2) 04/27/20 18:45 Baso # (Auto) 0.1 X10^3/uL (0.0-0.1) 04/27/20 18:45 Absolute Nucleated RBC 0.0 /100WBC 04/27/20 18:45 D-Dimer 15.97 ug/ml (0.0-0.57) H* 04/27/20 18:45 Sodium 141 mmol/L (136-145) 04/27/20 18:45 Corrected Sodium 142 mmol/L (136-145) 04/27/20 18:45 Potassium 3.7 mmol/L (3.5-5.1) 04/27/20 18:45 Chloride 102 mmol/L (98-107) 04/27/20 18:45 Carbon Dioxide 28.3 mmol/L (21-32) 04/27/20 18:45 BUN 16 mg/dL (7-18) 04/27/20 18:45 Creatinine 1.55 mg/dL (0.70-1.30) H 04/27/20 18:45 Est GFR (MDRD) Af Amer 59 (>60) 04/27/20 18:45 Est GFR (MDRD) Non-Af 48 (>60) L 04/27/20 18:45 Glucose 127 mg/dL (65-99) H 04/27/20 18:45 Calcium 9.4 mg/dL (8.5-10.1) 04/27/20 18:45 Corrected Calcium TNP 04/27/20 18:45 Total Bilirubin 0.70 mg/dL (0.2-1.0) 04/27/20 18:45 AST 31 Units/L (15-37) 04/27/20 18:45 ALT 56 Units/L (12-78) 04/27/20 18:45 Alkaline Phosphatase 102 Units/L (46-116) 04/27/20 18:45 Total Protein 8.3 g/dL (6.4-8.2) H 04/27/20 18:45 Albumin 3.4 g/dL (3.4-5.0) 04/27/20 18:45 Globulin 4.9 g/dL (2.5-4.5) H 04/27/20 18:45 Albumin/Globulin Ratio 0.7 Ratio (1.1-2.1) L 04/27/20 18:45 Influenza Type A Ag Negative-presumptive (NEGATIVE) 04/27/20 18:39 Influenza Type B Ag Negative-presumptive (NEGATIVE) 04/27/20 18:39 SARS CoV-2 RNA Rapid JASVIR Negative (NEGATIVE) 04/27/20 20:27 XRAY X-ray Results: Name: AUBREY MADERA [place]#: [id number]: [id number] : 1955Sex: MLocation: ER Order Number(s): [id number](s):CHEST, PA/LAT ADULT Ordering Physician: Ara Naranjo Primary Care: Aubrey Kearney M.D. Service Date: 04/27/20 Service Time: 1900 HISTORY Fever, chills STUDY CHEST, PA/LAT ADULT COMPARISON August 13, 2019 TECHNIQUE PA and lateral projections, 2 images FINDINGS Cardiac silhouette is normal in size and configuration. Pulmonary vascular sizes are normal. No effusion. No focal airspace disease. No pneumothorax. No acute osseous abnormality Fusion hardware in the lower cervical spine. IMPRESSION No imaging findings of acute cardiopulmonary disease. Electronically signed by: Souleymane Healy (Apr 27, 2020 20:08:58) Report Electronically signed: 04/27/202010 CC: Ara Naranjo MD Name: AUBREY MADERA [place]#: [id number]: [id number] : 1955Sex: MLocation: ER Order Number(s): [id number](s):CTA, CHEST Ordering Physician: Ara Naranjo Primary Care: Aubrey Kearney M.D. Service Date: 04/27/20 Service Time: 2244 STUDY: CTA CHEST WITH IV CONTRAST COMPARISON: None TECHNIQUE: axial images were acquired of the chest with IV contrast for a CT angiogram. Coronal and sagittal images were provided. All images were reviewed in a variety of windows and levels. 3D 8 mm thick MIPS images were provided. RADIATION REDUCTION TECHNIQUE: Automated exposure control, Adjustment of the mA and/or kV according to patient size, or iterative reconstruction techniques were used. 8 mm thick axial MIPS images were provided. HISTORY: ELEVATED D DIMER; FEVER FINDINGS: CHEST: THYROID GLANDS: The thyroid gland is unremarkable. HEART AND VESSELS: The heart size is within normal limits.There is no evidence of pericardial effusion. Thoracic aorta is normal size without evidence of an aneurysm or dissection.Main pulmonary artery size is within normal limits.Exam is markedly limited to due bolus timing. There is no evidence of a pulmonary embolism in the main pulmonary artery, right pulmonary artery, and left pulmonary artery. Distal emboli beyond these points can not be accurately assessed on this examination. LYMPH NODES: There is no evidence of axillary, mediastinal, or hilar lymphadenopathy. AIRWAY: The trachea and mainstem bronchi are patent.No intraluminal lesions are seen. LUNGS: There is a 20 mm pneumatocele in the left lower lobe. There is a 8 mm focus of ground-glass opacities along the subpleural surface of the left lower lung zone. Focus of consolidation with ground-glass is also seen in the medial segment of the right middle lobe. Additional pneumatocele is seen in the right lower lobe adjacent to the fissure measuring 11 mm. There is an irregular focal area of cystic changes with surrounding ground-glass opacities located in the left apex which measures 36 x 34 mm. Please note that there are no prior studies available for comparison to assess the chronicity of this finding. ESOPHAGUS: The esophagus is grossly unremarkable. BONES: The visualized bones demonstrate degenerative changes. There are no concerning lytic or blastic lesions identified. UPPER ABDOMINAL STRUCTURES: The visualized upper abdominal structures are unremarkable. IMPRESSSION: - Exam is markedly limited to due bolus timing. There is no evidence of a pulmonary embolism in the main pulmonary artery, right pulmonary artery, and left pulmonary artery. Distal emboli beyond these points can not be accurately assessed on this examination. - Multiple lung findings are seen as described above of which the largest measures 36 x 34 mm in the left apex. The chronicity of this finding is not clear as there are no prior studies available for comparison. The ground-glass opacities located in the medial segment of the right middle lobe and left lower lung zone may be acute and due to infectious process. This could represent a benign or possible malignant process. Follow-up may be obtained as clinically indicated. Electronically signed by: Bebeto Hong (Apr 27, 2020 23:39:32) Report Electronically signed: 04/27/20 8220 CC: Ara Naranjo MD Opioid Opioid Risk Tool Age (Mirza box if 16-45): No History of Preadolescent Sexual Abuse: No Total: 0 Total Score Risk Category: Low Risk Copyright: Torres LR predicting aberrant behaviors Diagnosis Discharge Problem: Pneumonia Qualifiers: Pneumonia type: due to unspecified organism Laterality: bilateral Lung location: unspecified part of lung Qualified Code(s): J18.9 - Pneumonia, unspecified organism
--- NOTE | 2020-04-27 20:11 | RAD ---
HISTORYFever, KRISHNA Cole/LAT ADULTCOMPARISONJune 2019TECHNIQUEPA and lateral projections, 2 imagesFINDINGSCardiac silhouette is normal in size and configuration.Pulmonary vascular sizes are normal.No effusion.No focal airspace disease.No pneumothorax.No acute osseous abnormalityFusion hardware in the lower cervical spine.IMPRESSIONNo imaging findings of acute cardiopulmonary disease.Electronically signed by: Souleymane Healy (Apr 27, 2020 20:08:58)
[2020-04-27] MEDS ORDERED: NS 1000 ML 1,000 ML ONE (22:29)
--- NOTE | 2020-04-27 23:41 | CT ---
STUDY: CTA CHEST WITH IV CONTRASTCOMPARISON: NoneTECHNIQUE: axial images were acquired of the chest with IV contrast for a CT angiogram. Coronal and sagittal images were provided. All images were reviewed in a variety of windows and levels. 3D 8 mm thick MIPS images were provided.RADIATION REDUCTION TECHNIQUE: Automated exposure control, Adjustment of the mA and/or kV according to patient size, or iterative reconstruction techniques were used. 8 mm thick axial MIPS images were provided.HISTORY: ELEVATED D DIMER; FEVERFINDINGS:CHEST:THYROID GLANDS: The thyroid gland is unremarkable.HEART AND VESSELS: The heart size is within normal limits.There is no evidence of pericardial effusion. Thoracic aorta is normal size without evidence of an aneurysm or dissection.Main pulmonary artery size is within normal limits.Exam is markedly limited to due bolus timing. There is no evidence of a pulmonary embolism in the main pulmonary artery, right pulmonary artery, and left pulmonary artery. Distal emboli beyond these points can not be accurately assessed on this examination.LYMPH NODES: There is no evidence of axillary, mediastinal, or hilar lymphadenopathy.AIRWAY: The trachea and mainstem bronchi are patent.No intraluminal lesions are seen.LUNGS: There is a 20 mm pneumatocele in the left lower lobe. There is a 8 mm focus of ground-glass opacities along the subpleural surface of the left lower lung zone. Focus of consolidation with ground-glass is also seen in the medial segment of the right middle lobe. Additional pneumatocele is seen in the right lower lobe adjacent to the fissure measuring 11 mm. There is an irregular focal area of cystic changes with surrounding ground-glass opacities located in the left apex which measures 36 x 34 mm. Please note that there are no prior studies available for comparison to assess the chronicity of this finding.ESOPHAGUS: The esophagus is grossly unremarkable.BONES: The visualized bones demonstrate degenerative changes. There are no concerning lytic or blastic lesions identified.UPPER ABDOMINAL STRUCTURES: The visualized upper abdominal structures are unremarkable.IMPRESSSION:- Exam is markedly limited to due bolus timing. There is no evidence of a pulmonary embolism in the main pulmonary artery, right pulmonary artery, and left pulmonary artery. Distal emboli beyond these points can not be accurately assessed on this examination.- Multiple lung findings are seen as described above of which the largest measures 36 x 34 mm in the left apex. The chronicity of this finding is not clear as there are no prior studies available for comparison. The ground-glass opacities located in the medial segment of the right middle lobe and left lower lung zone may be acute and due to infectious process. This could represent a benign or possible malignant process. Follow-up may be obtained as clinically indicated.Electronically signed by: Bebeto Hong (Apr 27, 2020 23:39:32)
[2020-04-28] MEDS ORDERED: ZOSYN VIAL 3.375 GRAMS 3.375 G in NS 100 ML IV + SPIKE MINIBAG* 100 ML IV ONE (00:35)
[2020-04-28] MEDS ORDERED: VANCOMYCIN IV *PREMIX 1 G/200 ML BAG 1 G/200 ML PIGGYBACK IV ONE (00:35)
[2020-04-28] MEDS ORDERED: NS 100 ML IV + SPIKE MINIBAG* 100 ML IV ONE (00:40)
[2020-04-28] MEDS ORDERED: ZOSYN VIAL 3.375 GRAMS IV ONE (00:40)
[2020-04-28] MEDS ORDERED: NS 1000 ML 1,000 ML ONE (00:40)
[2020-04-28] MEDS ORDERED: TYLENOL 325 MG TAB PO PRN (01:26)
[2020-04-28] MEDS ORDERED: TYLENOL 325 MG TAB PO ONE (01:27)
[2020-04-28] MEDS: TYLENOL 325 MG TAB PO PRN ×3 (05:29→20:48)
[2020-04-28] MEDS ORDERED: COLACE CAP 100 MG PO PRN (08:02)
[2020-04-28] MEDS ORDERED: DUONEB 0.5 MG/3 MG (3 mL) NEB ONE (08:16)
[2020-04-28 08:40] LABS: BASOPHILS # (AUTO) 0.1 X10^3/uL (0.0-0.1); BASOPHILS % (AUTO) 0.4 % (0.2-1.0); EOSINOPHILS # (AUTO) 0.1 x10^3/uL (0.0-0.2); EOSINOPHILS % (AUTO) 0.5 % (0.9-2.9); HEMATOCRIT 37.4 % (42.0-54.0); HEMOGLOBIN 12.4 g/dL (13.5-18.0); LYMPHOCYTES # (AUTO) 1.6 X10^3/uL (1.3-2.9); LYMPHOCYTES % (AUTO) 11.7 % (21.0-51.0); MEAN CORPUSCULAR HEMOGLOBIN 28.4 pg (27.0-34.0); MEAN CORPUSCULAR HGB CONC 33.3 g/dL (33.0-35.0); MEAN CORPUSCULAR VOLUME 85.6 fL (80.0-100.0); MEAN PLATELET VOLUME 8.4 fL (7.4-11.0); MONOCYTES # (AUTO) 0.9 x10^3/uL (0.3-0.8); MONOCYTES % (AUTO) 6.5 % (0.0-13.0); NEUTROPHILS % (AUTO) 80.9 % (42.0-75.0); PLATELET COUNT 289 X10^3/uL (150.0-450.0); RED BLOOD COUNT 4.37 X10^6/uL (4.7-6.0); RED CELL DISTRIBUTION WIDTH 13.7 % (11.6-16.5); WHITE BLOOD COUNT 13.6 X10^3/uL (3.6-10.0)
[2020-04-28] MEDS: DUONEB 0.5 MG/3 MG (3 mL) NEB SCH ×3 (08:47→21:10)
[2020-04-28 08:49] LABS: ALANINE AMINOTRANSFERASE 44 Units/L (12-78); ALKALINE PHOSPHATASE 98 Units/L (46-116); ASPARTATE AMINO TRANSFERASE 21 Units/L (15-37); BLOOD UREA NITROGEN 15 mg/dL (7-18); CALCIUM 8.9 mg/dL (8.5-10.1); CARBON DIOXIDE 23.8 mmol/L (21-32); CHLORIDE 102 mmol/L (98-107); COR CA(FOR HYPOALB) 9.7 mg/dL (8.5-10.1); COR NA(FOR HYPERGLY) 139 mmol/L (136-145); CREATININE 1.39 mg/dL (0.70-1.30); SODIUM 138 mmol/L (136-145); TOTAL PROTEIN 7.6 g/dL (6.4-8.2); eGFR NON BLACK RACES 55 (>60)
[2020-04-28] MEDS: FLOMAX PO SCH (10:14)
[2020-04-28] MEDS: NORVASC TAB 10 MG PO SCH (10:14)
[2020-04-28] MEDS: LIPITOR TAB 80 MG PO SCH (10:14)
[2020-04-28] MEDS: ASPIRIN EC 81 MG PO SCH (10:15)
[2020-04-28] MEDS: TOPROL XL PO SCH (10:15)
[2020-04-28] MEDS: PEPCID TAB 40 MG PO SCH (10:16)
[2020-04-28] MEDS: NEURONTIN CAP 400 MG PO SCH ×3 (10:16→21:00)
[2020-04-28] MEDS: ZITHROMAX TAB 250 MG PO SCH (10:17)
[2020-04-28] MEDS: ZOSYN VIAL 3.375 GRAMS 3.375 G in NS 100 ML IV + SPIKE MINIBAG* 100 ML IV SCH ×4 (10:17→21:00)
[2020-04-28] MEDS: LOVENOX INJ 40 MG SYR SC SCH (10:18)
--- NOTE | 2020-04-28 10:56 | DR.H&P ---
H&P History & Physical for Day of: H&P Date: 04/28/20 Chief Complaint Chief Complaint: fever and chills Allergies Allergies Allergy/AdvReac Type Severity Reaction Status Date / Time No Known Drug Allergies Allergy Verified 06/02/17 13:16 History of Present Illness History of Present Illness: Mr. Rice is a 64y/o male with a PMH of CAD s/p PCI, HTN, HLD and GERD presented with fever and chills. He states he was shaking all over. He recently had neck surgery couple weeks ago. Patient states his Sx started few days ago and continued to worsen. Denies cough or SOB. Denies GI Sx. Denies sick contact or exposure. He had a fever of 101.2 overnight. Patient is c urrently on room air. Labs: elevated d-dimer, WBC 13.6 (11.5), Hgb 12.4 BUN/Cr: 15/1.39 (1.55) COVID-19 negative Flu (-) CTA: negative for PE There is a 20 mm pneumatocele in the left lower lobe. There is a 8 mm focus of ground-glass opacities along the subpleural surface of the left lower lung zone. Focus of consolidation with ground-glass is also seen in the medial segment of the right middle lobe. Additional pneumatocele is seen in the right lower lobe adjacent to the fissure measuring 11 mm. There is an irregular focal area of cystic changes with surrounding ground-glass opacities located in the left apex which measures 36 x34 mm. Plan: Continue IV Zosyn and Azithromycin, follow cultures. Resume home medications. Add bronchodilators prn. Continue gentle hydration with NS. Hold lasix and acei. Lovenox BID for DVT ppx. Monitor AM labs/imaging. Past Medical History Past Medical History: Gout and Hypertension Additional Medical History: hypercholesterolemia, prostate cancer Past Surgical History Surgical History: Angioplasty/Stents, Appendectomy, Ortho Surgery and Other Family History Family Medical History: Diabetes Mellitus, [place], Sudden Cardiac and Hypertension Social History Does patient currently use any type of tobacco product: No Have you used tobacco products in the last 12 months: No Type of Tobacco Use: None How many years tobacco product used: 0 Does any household member use tobacco: No Alcohol Use: None Drug Use: None Prescription drug monitoring program results: PDMP was not reviewed Medications Home Medications: No Known Drug Allergies Allergy (Verified 06/02/17 13:16) CONTINUE taking the following medications diphenhydramine HCl [Banophen] 50 mg PO Q4-6H PRN 04/28/20 [History] docusate sodium [DOK] 100 mg PO DAILY PRN 04/28/20 [History] furosemide 40 mg PO DAILY 04/28/20 [History] gabapentin 800 mg PO TID 04/28/20 [History] hydrochlorothiazide 25 mg PO DAILY 04/28/20 [History] magnesium hydroxide [Milk of Magnesia] 30 ml PO DAILY PRN 04/28/20 [History] metoprolol succinate 25 mg PO DAILY 04/28/20 [History] Labs Result Diagrams: 04/28/20 08:22 04/28/20 08:22 Labs: Laboratory WBC 13.6 X10^3/uL (3.6-10.0) H 04/28/20 08:22 RBC 4.37 X10^6/uL (4.7-6.0) L 04/28/20 08:22 Hgb 12.4 g/dL (13.5-18.0) L 04/28/20 08:22 Hct 37.4 % (42.0-54.0) L 04/28/20 08:22 MCV 85.6 fL (80.0-100.0) 04/28/20 08:22 MCH 28.4 pg (27.0-34.0) 04/28/20 08:22 MCHC 33.3 g/dL (33.0-35.0) 04/28/20 08:22 RDW 13.7 % (11.6-16.5) 04/28/20 08:22 Plt Count 289 X10^3/uL (150.0-450.0) 04/28/20 08:22 MPV 8.4 fL (7.4-11.0) 04/28/20 08:22 Neut % (Auto) 80.9 % (42.0-75.0) H 04/28/20 08:22 Lymph % (Auto) 11.7 % (21.0-51.0) L 04/28/20 08:22 [place] % (Auto) 6.5 % (0.0-13.0) 04/28/20 08:22 Eos % (Auto) 0.5 % (0.9-2.9) L 04/28/20 08:22 Baso % (Auto) 0.4 % (0.2-1.0) 04/28/20 08:22 Neut # (Auto) 11.0 x10^3/uL (2.2-4.8) H 04/28/20 08:22 Lymph # (Auto) 1.6 X10^3/uL (1.3-2.9) 04/28/20 08:22 [place] # (Auto) 0.9 x10^3/uL (0.3-0.8) H 04/28/20 08:22 Eos # (Auto) 0.1 x10^3/uL (0.0-0.2) 04/28/20 08:22 Baso # (Auto) 0.1 X10^3/uL (0.0-0.1) 04/28/20 08:22 Absolute Nucleated RBC 0.0 /100WBC 04/28/20 08:22 D-Dimer 15.97 ug/ml (0.0-0.57) H* 04/27/20 18:45 Sodium 138 mmol/L (136-145) 04/28/20 08:22 Corrected Sodium 139 mmol/L (136-145) 04/28/20 08:22 Potassium 3.7 mmol/L (3.5-5.1) 04/28/20 08:22 Chloride 102 mmol/L (98-107) 04/28/20 08:22 Carbon Dioxide 23.8 mmol/L (21-32) 04/28/20 08:22 BUN 15 mg/dL (7-18) 04/28/20 08:22 Creatinine 1.39 mg/dL (0.70-1.30) H 04/28/20 08:22 Est GFR (MDRD) Af Amer > 60 (>60) 04/28/20 08:22 Est GFR (MDRD) Non-Af 55 (>60) L 04/28/20 08:22 Glucose 124 mg/dL (65-99) H 04/28/20 08:22 Calcium 8.9 mg/dL (8.5-10.1) 04/28/20 08:22 Corrected Calcium 9.7 mg/dL (8.5-10.1) 04/28/20 08:22 Total Bilirubin 1.40 mg/dL (0.2-1.0) H 04/28/20 08:22 AST 21 Units/L (15-37) 04/28/20 08:22 ALT 44 Units/L (12-78) 04/28/20 08:22 Alkaline Phosphatase 98 Units/L (46-116) 04/28/20 08:22 Total Protein 7.6 g/dL (6.4-8.2) 04/28/20 08:22 Albumin 3.0 g/dL (3.4-5.0) L 04/28/20 08:22 Globulin 4.6 g/dL (2.5-4.5) H 04/28/20 08:22 Albumin/Globulin Ratio 0.7 Ratio (1.1-2.1) L 04/28/20 08:22 Influenza Type A Ag Negative-presumptive (NEGATIVE) 04/27/20 18:39 Influenza Type B Ag Negative-presumptive (NEGATIVE) 04/27/20 18:39 SARS CoV-2 RNA Rapid JASVIR Negative (NEGATIVE) 04/27/20 20:27 Review of Systems Constitutional: Fever, Chills and Malaise Eyes: No Symptoms Reported ENT: No Symptoms Reported Respiratory: No Symptoms Reported Cardiovascular: No Symptoms Reported Gastrointestinal: No Symptoms Reported Genitourinary: No Symptoms Reported Musculoskeletal: Neck Pain Skin: No Symptoms Reported Neurological: No Symptoms Reported Physical Exam Vital Signs: Temperature 99.9 F Pulse Rate [Left] 62 Pulse Rate 76 Respiratory Rate 16 Blood Pressure [Left Arm] 126/59 Blood Pressure 128/60 O2 Sat by Pulse Oximetry 96 Oriented: Normal Eyes: Normal Ear: Normal Nose: Normal Throat: Normal Respiratory: Diminished Throughout and RUL Rhonchi Cardiovascular: Normal Auscultation: Bowel Sounds: Normal Palpation: Normal Tenderness: Normal Skin: Normal Musculoskeletal: Tender and Motor Deficit (cervical area ) Psychiatric: Normal Mood Description: Calm Affect: Normal Speech Pattern: Clear and Appropriate Assessment/Plan (1) Pneumonia: Qualifiers: Laterality: bilateral Lung location: unspecified part of lung Pneumonia type: due to unspecified organism Qualified Code(s): J18.9 - Pneu monia, unspecified organism Status: Acute (2) Cervical spine degeneration: Qualifiers: Spinal osteoarthritis complication: unspecified spinal osteoarthritis Qualified Code(s): M47.812 - Spondylosis without myelopathy or radiculopathy, cervical region Status: Acute (3) CAD (coronary artery disease): Qualifiers: Coronary Disease-Associated Artery/Lesion type: unspecified vessel or lesion type [place] vs. transplanted heart: [place] heart Associated angina: without angina Qualified Code(s): I25.10 - Atherosclerotic heart disease of [place] coronary artery without angina pectoris Status: Acute (4) Hypertension: Qualifiers: Hypertension type: essential hypertension Qualified Code(s): I10 - Essential (primary) hypertension Status: Chronic Review H&P Reviewed: Yes Patient was examined?: Yes
[2020-04-28] MEDS: NS 1000 ML 1,000 ML IV SCH (14:38)
[2020-04-29] MEDS: NS 1000 ML 1,000 ML IV SCH ×2 (02:35→18:24)
[2020-04-29] MEDS: NEURONTIN CAP 400 MG PO SCH ×3 (05:30→21:00)
[2020-04-29] MEDS: ZOSYN VIAL 3.375 GRAMS 3.375 G in NS 100 ML IV + SPIKE MINIBAG* 100 ML IV SCH ×3 (05:30→21:37)
[2020-04-29] MEDS: DUONEB 0.5 MG/3 MG (3 mL) NEB SCH ×3 (05:35→21:22)
[2020-04-29 06:52] LABS: BASOPHILS # (AUTO) 0.1 X10^3/uL (0.0-0.1); BASOPHILS % (AUTO) 0.4 % (0.2-1.0); EOSINOPHILS # (AUTO) 0.2 x10^3/uL (0.0-0.2); EOSINOPHILS % (AUTO) 1.7 % (0.9-2.9); HEMATOCRIT 34.8 % (42.0-54.0); LYMPHOCYTES # (AUTO) 2.2 X10^3/uL (1.3-2.9); LYMPHOCYTES % (AUTO) 17.4 % (21.0-51.0); MEAN CORPUSCULAR HGB CONC 34.3 g/dL (33.0-35.0); MEAN CORPUSCULAR VOLUME 84.4 fL (80.0-100.0); MEAN PLATELET VOLUME 8.6 fL (7.4-11.0); MONOCYTES % (AUTO) 7.6 % (0.0-13.0); NEUTROPHILS # (AUTO) 9.3 x10^3/uL (2.2-4.8); NEUTROPHILS % (AUTO) 72.9 % (42.0-75.0); PLATELET COUNT 242 X10^3/uL (150.0-450.0); RED BLOOD COUNT 4.12 X10^6/uL (4.7-6.0); RED CELL DISTRIBUTION WIDTH 13.6 % (11.6-16.5); WHITE BLOOD COUNT 12.7 X10^3/uL (3.6-10.0)
[2020-04-29 06:57] LABS: BLOOD UREA NITROGEN 11 mg/dL (7-18); CALCIUM 8.7 mg/dL (8.5-10.1); CARBON DIOXIDE 23.9 mmol/L (21-32); CHLORIDE 100 mmol/L (98-107); COR NA(FOR HYPERGLY) 135 mmol/L (136-145); SODIUM 135 mmol/L (136-145); eGFR NON BLACK RACES 59 (>60)
[2020-04-29] MEDS ORDERED: PHARMACY CONSULT - VANCOMYCIN XX SCH (08:00)
[2020-04-29] MEDS: LOVENOX INJ 40 MG SYR SC SCH (08:20)
[2020-04-29] MEDS: ASPIRIN EC 81 MG PO SCH (08:20)
[2020-04-29] MEDS: LIPITOR TAB 80 MG PO SCH (08:20)
[2020-04-29] MEDS: FLOMAX PO SCH (08:20)
[2020-04-29] MEDS: PEPCID TAB 40 MG PO SCH (08:21)
[2020-04-29] MEDS: TOPROL XL PO SCH (08:21)
[2020-04-29] MEDS: NORVASC TAB 10 MG PO SCH (08:21)
[2020-04-29] MEDS: ZITHROMAX TAB 250 MG PO SCH (08:22)
[2020-04-29] MEDS: MAGNESIUM SULFATE 1 GRAM/100 mL PREMIX 1 GM/100 ML BAG IV PRN ×2 (10:06→12:00)
--- NOTE | 2020-04-29 10:28 | PCM.PROG ---
Progress Note Progress Note for Day of Date of Exam: 04/29/20 Subjective Subjective: Patient seen at bedside, no overnight events. He is still having fevers, Tmax 101.6 yesterday. Patient reports dry cough. Denies sputum. Denies SOB. Denies N/V/D. He has been ambulating to the bathroom. Labs: WBC 12.7 Hgb 12 Plt 242 BUN/Cr: 11/.30 Glucose 111 Blood Cx pending Plan: will add Vancomycin for MRSA coverage, continue Zosyn and Azithromycin. Follow cultures. Continue duonebs prn. Continue home medications. Monitor AM labs and imaging. Past Medical Family Social History Past Med/Fam/Surg Hx: No changes since H&P Allergies: Allergies No Known Drug Allergies Allergy (Verified 06/02/17 13:16) Review of Systems ROS: No change since H&P Vital Signs and I&O's Vital Signs: Temperature 99.9 F Pulse Rate [Left] 90 Pulse Rate 71 Respiratory Rate 20 Blood Pressure [Left Arm] 122/72 Blood Pressure 128/60 O2 Sat by Pulse Oximetry 96 Intake and Output: Intake & Output 04/26/20 04/27/20 04/28/20 04/29/20 23:59 23:59 23:59 23:59 Intake Total 2448 / 2448 961 / 961 Output Total 950 / 950 500 / 500 Balance 1498 / 1498 461 / 461 Physical Exam Oriented: Normal Eyes: Normal Ear: Normal Nose: Normal Throat: Normal Respiratory: Generalized and Diminished Cardiovascular: Normal Auscultation: Bowel Sounds: Normal Tenderness: Normal Skin: Normal Musculoskeletal: Tender and Motor Deficit (cervical area ) Psychiatric: Normal Mood Description: Calm Affect: Normal Speech Pattern: Clear and Appropriate Laboratory and Diagnostics Result Diagrams: 04/29/20 06:00 04/29/20 06:00 Labs: Laboratory WBC 12.7 X10^3/uL (3.6-10.0) H 04/29/20 06:00 RBC 4.12 X10^6/uL (4.7-6.0) L 04/29/20 06:00 Hgb 12.0 g/dL (13.5-18.0) L 04/29/20 06:00 Hct 34.8 % (42.0-54.0) L 04/29/20 06:00 MCV 84.4 fL (80.0-100.0) 04/29/20 06:00 MCH 29.0 pg (27.0-34.0) 04/29/20 06:00 MCHC 34.3 g/dL (33.0-35.0) 04/29/20 06:00 RDW 13.6 % (11.6-16.5) 04/29/20 06:00 Plt Count 242 X10^3/uL (150.0-450.0) 04/29/20 06:00 MPV 8.6 fL (7.4-11.0) 04/29/20 06:00 Neut % (Auto) 72.9 % (42.0-75.0) 04/29/20 06:00 Lymph % (Auto) 17.4 % (21.0-51.0) L 04/29/20 06:00 [place] % (Auto) 7.6 % (0.0-13.0) 04/29/20 06:00 Eos % (Auto) 1.7 % (0.9-2.9) 04/29/20 06:00 Baso % (Auto) 0.4 % (0.2-1.0) 04/29/20 06:00 Neut # (Auto) 9.3 x10^3/uL (2.2-4.8) H 04/29/20 06:00 Lymph # (Auto) 2.2 X10^3/uL (1.3-2.9) 04/29/20 06:00 [place] # (Auto) 1.0 x10^3/uL (0.3-0.8) H 04/29/20 06:00 Eos # (Auto) 0.2 x10^3/uL (0.0-0.2) 04/29/20 06:00 Baso # (Auto) 0.1 X10^3/uL (0.0-0.1) 04/29/20 06:00 Absolute Nucleated RBC 0.0 /100WBC 04/29/20 06:00 D-Dimer 5.42 ug/ml (0.0-0.57) H* 04/29/20 06:00 Sodium 135 mmol/L (136-145) L 04/29/20 06:00 Corrected Sodium 135 mmol/L (136-145) L 04/29/20 06:00 Potassium 3.6 mmol/L (3.5-5.1) 04/29/20 06:00 Chloride 100 mmol/L (98-107) 04/29/20 06:00 Carbon Dioxide 23.9 mmol/L (21-32) 04/29/20 06:00 BUN 11 mg/dL (7-18) 04/29/20 06:00 Creatinine 1.30 mg/dL (0.70-1.30) 04/29/20 06:00 Est GFR (MDRD) Af Amer > 60 (>60) 04/29/20 06:00 Est GFR (MDRD) Non-Af 59 (>60) 04/29/20 06:00 Glucose 111 mg/dL (65-99) H 04/29/20 06:00 Calcium 8.7 mg/dL (8.5-10.1) 04/29/20 06:00 Corrected Calcium 9.7 mg/dL (8.5-10.1) 04/28/20 08:22 Magnesium 1.9 mg/dL (1.7-2.9) 04/29/20 06:00 Total Bilirubin 1.40 mg/dL (0.2-1.0) H 04/28/20 08:22 AST 21 Units/L (15-37) 04/28/20 08:22 ALT 44 Units/L (12-78) 04/28/20 08:22 Alkaline Phosphatase 98 Units/L (46-116) 04/28/20 08:22 Total Protein 7.6 g/dL (6.4-8.2) 04/28/20 08:22 Albumin 3.0 g/dL (3.4-5.0) L 04/28/20 08:22 Globulin 4.6 g/dL (2.5-4.5) H 04/28/20 08:22 Albumin/Globulin Ratio 0.7 Ratio (1.1-2.1) L 04/28/20 08:22 Influenza Type A Ag Negative-presumptive (NEGATIVE) 04/27/20 18:39 Influenza Type B Ag Negative-presumptive (NEGATIVE) 04/27/20 18:39 SARS CoV-2 RNA Rapid JASVIR Negative (NEGATIVE) 04/27/20 20:27 Plan (1) Pneumonia: Status: Acute Qualifiers: Laterality: bilateral Lung location: unspecified part of lung Pneumonia type: due to unspecified organism Qualified Code(s): J18.9 - Pneumonia, unspecified organism (2) Cervical spine degeneration: Status: Acute Qualifiers: Spinal osteoarthritis complication: unspecified spinal osteoarthritis Qualified Code(s): M47.812 - Spondylosis without myelopathy or radiculopathy, cervical region (3) CAD (coronary artery disease): Status: Acute Qualifiers: Associated angina: without angina Coronary Disease-Associated Artery/Lesion type: unspecified vessel or lesion type [place] vs. transplanted heart: [place] heart Qualified Code(s): I25.10 - Atherosclerotic heart disease of [place] coronary artery without angina pectoris (4) Hypertension: Status: Chronic Qualifiers: Hypertension type: essential hypertension Qualified Code(s): I10 - Essential (primary) hypertension
[2020-04-29] MEDS ORDERED: NS 250 ML IV 250 ML IV ONE (13:05)
[2020-04-29] MEDS: VANCOMYCIN IV *PREMIX 1 G/200 ML BAG 1 G/200 ML PIGGYBACK IV SCH ×2 (13:09→20:31)
[2020-04-29] MEDS: ARIMIDEX PO SCH (13:09)
[2020-04-29] MEDS: MILK OF MAGNESIA PO SCH (20:31)
[2020-04-30] MEDS: NEURONTIN CAP 400 MG PO SCH ×3 (05:19→20:54)
[2020-04-30] MEDS: VANCOMYCIN IV *PREMIX 1 G/200 ML BAG 1 G/200 ML PIGGYBACK IV SCH ×3 (05:22→20:56)
[2020-04-30] MEDS: DUONEB 0.5 MG/3 MG (3 mL) NEB SCH ×3 (05:26→22:45)
[2020-04-30] MEDS ORDERED: PHARMACY COMMENT IV NR ×2 (05:30→13:30)
[2020-04-30] MEDS: NS 1000 ML 1,000 ML IV SCH ×2 (06:30→22:33)
[2020-04-30 06:31] LABS: BASOPHILS % (AUTO) 0.2 % (0.2-1.0); BLOOD UREA NITROGEN 9 mg/dL (7-18); CALCIUM 8.8 mg/dL (8.5-10.1); CARBON DIOXIDE 25.4 mmol/L (21-32); CHLORIDE 104 mmol/L (98-107); COR NA(FOR HYPERGLY) 137 mmol/L (136-145); CREATININE 1.22 mg/dL (0.70-1.30); EOSINOPHILS # (AUTO) 0.4 x10^3/uL (0.0-0.2); EOSINOPHILS % (AUTO) 4.3 % (0.9-2.9); HEMOGLOBIN 11.2 g/dL (13.5-18.0); MAGNESIUM 2.2 mg/dL (1.7-2.9); MEAN CORPUSCULAR HEMOGLOBIN 29.5 pg (27.0-34.0); MEAN CORPUSCULAR HGB CONC 34.9 g/dL (33.0-35.0); MEAN CORPUSCULAR VOLUME 84.3 fL (80.0-100.0); MEAN PLATELET VOLUME 8.1 fL (7.4-11.0); MONOCYTES # (AUTO) 0.8 x10^3/uL (0.3-0.8); MONOCYTES % (AUTO) 7.8 % (0.0-13.0); NEUTROPHILS # (AUTO) 7.1 x10^3/uL (2.2-4.8); NEUTROPHILS % (AUTO) 68.7 % (42.0-75.0); PLATELET COUNT 288 X10^3/uL (150.0-450.0); RED CELL DISTRIBUTION WIDTH 13.5 % (11.6-16.5); SODIUM 137 mmol/L (136-145); WHITE BLOOD COUNT 10.3 X10^3/uL (3.6-10.0); eGFR NON BLACK RACES > 60 (>60)
[2020-04-30] MEDS: ZOSYN VIAL 3.375 GRAMS 3.375 G in NS 100 ML IV + SPIKE MINIBAG* 100 ML IV SCH ×3 (06:31→21:57)
[2020-04-30] MEDS: LIPITOR TAB 80 MG PO SCH (09:07)
[2020-04-30] MEDS: FLOMAX PO SCH (09:08)
[2020-04-30] MEDS: TOPROL XL PO SCH (09:08)
[2020-04-30] MEDS: NORVASC TAB 10 MG PO SCH (09:09)
[2020-04-30] MEDS: ARIMIDEX PO SCH (09:10)
[2020-04-30] MEDS: ASPIRIN EC 81 MG PO SCH (09:11)
[2020-04-30] MEDS: PEPCID TAB 40 MG PO SCH (09:11)
[2020-04-30] MEDS: ZITHROMAX TAB 250 MG PO SCH (09:11)
[2020-04-30] MEDS: LOVENOX INJ 40 MG SYR SC SCH (09:12)
[2020-04-30] MEDS: MILK OF MAGNESIA PO SCH ×2 (09:13→20:57)
--- NOTE | 2020-04-30 11:11 | PCM.PROG ---
Progress Note Progress Note for Day of Date of Exam: 04/30/20 Subjective Subjective: Patient seen at bedside, no acute overnight events. Yesterday evening, patient noticed drainage from his neck surgery scar. It was serosanguinous and culture was obtained. Patient's Tmax has been 100.3. He states he feels about the same. He still has some dry cough. Denies chills. Denies GI sx. He worked with PT yesterday and has been ambulating to the bathroom. Labs: WBC 10.3 Hgb 11.2 Plt 288 BUN/Cr: 9/.22 Glucose 117 Blood Cx no growth Wound Cx pending Plan: Continue Vancomycin, Zosyn and Azithromycin. Follow Wound Cx. Daily dressing. PT/OT as tolerated. Continue duonebs prn. Continue home medications. Monitor AM labs and imaging. Past Medical Family Social History Past Med/Fam/Surg Hx: No changes since H&P Allergies: Allergies No Known Drug Allergies Allergy (Verified 06/02/17 13:16) Review of Systems ROS: No change since H&P Vital Signs and I&O's Vital Signs: Temperature 99.7 F Pulse Rate [Right Brachial] 68 Pulse Rate [Left] 74 Pulse Rate 69 Respiratory Rate 16 Blood Pressure [Right Arm] 134/69 Blood Pressure [Left Arm] 171/74 Blood Pressure 128/60 O2 Sat by Pulse Oximetry 96 Intake and Output: Intake & Output 04/27/20 04/28/20 04/29/20 04/30/20 23:59 23:59 23:59 23:59 Intake Total 2448 / 2448 2800 / 2800 358 / 358 Output Total 950 / 950 1700 / 1700 250 / 250 Balance 1498 / 1498 1100 / 1100 108 / 108 Physical Exam Oriented: Normal Eyes: Normal Ear: Normal Nose: Normal Throat: Normal Respiratory: Generalized and Diminished Cardiovascular: Normal Auscultation: Bowel Sounds: Normal Tenderness: Normal Skin: Normal, Wound and Other (cervical area, dressing intact, no surrouding erythema noted ) Musculoskeletal: Tender and Motor Deficit (cervical area ) Psychiatric: Normal Mood Description: Calm Affect: Normal Speech Pattern: Clear and Appropriate Laboratory and Diagnostics Result Diagrams: 04/30/20 05:53 04/30/20 05:53 Labs: 04/29/20 18:15 Neck Wound Culture - Preliminary 04/27/20 18:51 Blood Blood Culture - Preliminary 04/27/20 18:45 Blood Blood Culture - Preliminary Laboratory WBC 10.3 X10^3/uL (3.6-10.0) H 04/30/20 05:53 RBC 3.80 X10^6/uL (4.7-6.0) L 04/30/20 05:53 Hgb 11.2 g/dL (13.5-18.0) L 04/30/20 05:53 Hct 32.0 % (42.0-54.0) L 04/30/20 05:53 MCV 84.3 fL (80.0-100.0) 04/30/20 05:53 MCH 29.5 pg (27.0-34.0) 04/30/20 05:53 MCHC 34.9 g/dL (33.0-35.0) 04/30/20 05:53 RDW 13.5 % (11.6-16.5) 04/30/20 05:53 Plt Count 288 X10^3/uL (150.0-450.0) 04/30/20 05:53 MPV 8.1 fL (7.4-11.0) 04/30/20 05:53 Neut % (Auto) 68.7 % (42.0-75.0) 04/30/20 05:53 Lymph % (Auto) 19.0 % (21.0-51.0) L 04/30/20 05:53 [place] % (Auto) 7.8 % (0.0-13.0) 04/30/20 05:53 Eos % (Auto) 4.3 % (0.9-2.9) H 04/30/20 05:53 Baso % (Auto) 0.2 % (0.2-1.0) 04/30/20 05:53 Neut # (Auto) 7.1 x10^3/uL (2.2-4.8) H 04/30/20 05:53 Lymph # (Auto) 2.0 X10^3/uL (1.3-2.9) 04/30/20 05:53 [place] # (Auto) 0.8 x10^3/uL (0.3-0.8) 04/30/20 05:53 Eos # (Auto) 0.4 x10^3/uL (0.0-0.2) H 04/30/20 05:53 Baso # (Auto) 0.0 X10^3/uL (0.0-0.1) 04/30/20 05:53 Absolute Nucleated RBC 0.0 /100WBC 04/30/20 05:53 D-Dimer 5.42 ug/ml (0.0-0.57) H* 04/29/20 06:00 Sodium 137 mmol/L (136-145) 04/30/20 05:53 Corrected Sodium 137 mmol/L (136-145) 04/30/20 05:53 Potassium 3.8 mmol/L (3.5-5.1) 04/30/20 05:53 Chloride 104 mmol/L (98-107) 04/30/20 05:53 Carbon Dioxide 25.4 mmol/L (21-32) 04/30/20 05:53 BUN 9 mg/dL (7-18) 04/30/20 05:53 Creatinine 1.22 mg/dL (0.70-1.30) 04/30/20 05:53 Est GFR (MDRD) Af Amer > 60 (>60) 04/30/20 05:53 Est GFR (MDRD) Non-Af > 60 (>60) 04/30/20 05:53 Glucose 117 mg/dL (65-99) H 04/30/20 05:53 Calcium 8.8 mg/dL (8.5-10.1) 04/30/20 05:53 Corrected Calcium 9.7 mg/dL (8.5-10.1) 04/28/20 08:22 Magnesium 2.2 mg/dL (1.7-2.9) 04/30/20 05:53 Total Bilirubin 1.40 mg/dL (0.2-1.0) H 04/28/20 08:22 AST 21 Units/L (15-37) 04/28/20 08:22 ALT 44 Units/L (12-78) 04/28/20 08:22 Alkaline Phosphatase 98 Units/L (46-116) 04/28/20 08:22 Total Protein 7.6 g/dL (6.4-8.2) 04/28/20 08:22 Albumin 3.0 g/dL (3.4-5.0) L 04/28/20 08:22 Globulin 4.6 g/dL (2.5-4.5) H 04/28/20 08:22 Albumin/Globulin Ratio 0.7 Ratio (1.1-2.1) L 04/28/20 08:22 Influenza Type A Ag Negative-presumptive (NEGATIVE) 04/27/20 18:39 Influenza Type B Ag Negative-presumptive (NEGATIVE) 04/27/20 18:39 SARS CoV-2 RNA Rapid JASVIR Negative (NEGATIVE) 04/27/20 20:27 Plan (1) Surgical site infection: Status: Acute (2) Pneumonia: Status: Acute Qualifiers: Laterality: bilateral Lung location: unspecified part of lung Pneumonia type: due to unspecified organism Qualified Code(s): J18.9 - Pneumonia, unspecified organism (3) Cervical spine degeneration: Status: Acute Qualifiers: Spinal osteoarthritis complication: unspecified spinal osteoarthritis Qualified Code(s): M47.812 - Spondylosis without myelopathy or radiculopathy, cervical region (4) CAD (coronary artery disease): Status: Acute Qualifiers: Associated angina: without angina Coronary Disease-Associated Artery/Lesion type: unspecified vessel or lesion type [place] vs. transplanted heart: [place] heart Qualified Code(s): I25.10 - Atherosclerotic heart disease of [place] coronary artery without angina pectoris (5) Hypertension: Status: Chronic Qualifiers: Hypertension type: essential hypertension Qualified Code(s): I10 - Essential (primary) hypertension
[2020-04-30 14:13] LABS: CREATININE 1.23 mg/dL (0.70-1.30); VANCOMYCIN,TROUGH 9.5 ug/mL (15-20)
[2020-04-30] MEDS ORDERED: ZYLOPRIM PO ONE (20:00)
[2020-05-01] MEDS: NEURONTIN CAP 400 MG PO SCH ×3 (05:02→21:42)
[2020-05-01] MEDS: VANCOMYCIN IV *PREMIX 1 G/200 ML BAG 1 G/200 ML PIGGYBACK IV SCH (05:03)
[2020-05-01] MEDS: ZOSYN VIAL 3.375 GRAMS 3.375 G in NS 100 ML IV + SPIKE MINIBAG* 100 ML IV SCH (06:07)
--- NOTE | 2020-05-01 06:11 | RAD ---
STUDY: FRONTAL VIEW CHESTCOMPARISON: 04/27/2020HISTORY: PNEUMONIAFINDINGS:No focal consolidation is seen.The heart size is within normal limits.The mediastinum is unremarkable.There is no evidence of pleural effusion or gross pneumothorax.The trachea is midline.IMPRESSION:1. No focal consolidation is seen.2. The heart size is normal.Electronically signed by: Bebeto Hong (May 01, 2020 06:08:08)
[2020-05-01] MEDS: DUONEB 0.5 MG/3 MG (3 mL) NEB SCH ×3 (06:13→21:26)
[2020-05-01 06:17] LABS: BASOPHILS % (AUTO) 0.2 % (0.2-1.0); EOSINOPHILS # (AUTO) 0.2 x10^3/uL (0.0-0.2); HEMOGLOBIN 11.2 g/dL (13.5-18.0); LYMPHOCYTES # (AUTO) 1.3 X10^3/uL (1.3-2.9); LYMPHOCYTES % (AUTO) 13.2 % (21.0-51.0); MEAN CORPUSCULAR HEMOGLOBIN 28.9 pg (27.0-34.0); MEAN CORPUSCULAR HGB CONC 33.9 g/dL (33.0-35.0); MEAN CORPUSCULAR VOLUME 85.4 fL (80.0-100.0); MEAN PLATELET VOLUME 7.8 fL (7.4-11.0); MONOCYTES # (AUTO) 0.7 x10^3/uL (0.3-0.8); MONOCYTES % (AUTO) 6.9 % (0.0-13.0); NEUTROPHILS # (AUTO) 7.5 x10^3/uL (2.2-4.8); NEUTROPHILS % (AUTO) 77.7 % (42.0-75.0); PLATELET COUNT 349 X10^3/uL (150.0-450.0); RED BLOOD COUNT 3.87 X10^6/uL (4.7-6.0); RED CELL DISTRIBUTION WIDTH 13.3 % (11.6-16.5); WHITE BLOOD COUNT 9.6 X10^3/uL (3.6-10.0)
[2020-05-01 06:34] LABS: BLOOD UREA NITROGEN 10 mg/dL (7-18); CALCIUM 8.7 mg/dL (8.5-10.1); CHLORIDE 103 mmol/L (98-107); COR NA(FOR HYPERGLY) 135 mmol/L (136-145); CREATININE 1.08 mg/dL (0.70-1.30); SODIUM 135 mmol/L (136-145); eGFR NON BLACK RACES > 60 (>60)
[2020-05-01] MEDS: MILK OF MAGNESIA PO SCH ×3 (08:14→21:43)
[2020-05-01] MEDS: PEPCID TAB 40 MG PO SCH (08:15)
[2020-05-01] MEDS: ZITHROMAX TAB 250 MG PO SCH (08:15)
[2020-05-01] MEDS: NORVASC TAB 10 MG PO SCH (08:16)
[2020-05-01] MEDS: TOPROL XL PO SCH (08:16)
[2020-05-01] MEDS: ASPIRIN EC 81 MG PO SCH (08:16)
[2020-05-01] MEDS: LIPITOR TAB 80 MG PO SCH (08:16)
[2020-05-01] MEDS: ARIMIDEX PO SCH (08:16)
[2020-05-01] MEDS: LOVENOX INJ 40 MG SYR SC SCH (08:17)
[2020-05-01] MEDS: FLOMAX PO SCH (08:17)
[2020-05-01] MEDS ORDERED: ZESTRIL TAB 20 MG ONE ×2 (08:51→20:22)
[2020-05-01] MEDS: HYDROCHLOROTHIAZIDE 25 MG TAB PO SCH (08:57)
[2020-05-01] MEDS: ZYLOPRIM PO SCH (08:57)
[2020-05-01] MEDS: PERCOCET TAB 5/325 MG PO SCH ×4 (08:58→21:42)
[2020-05-01] MEDS: PROTONIX TAB 40 MG PO SCH (08:58)
[2020-05-01] MEDS: ZESTRIL TAB 20 MG PO SCH ×2 (08:58→21:41)
--- NOTE | 2020-05-01 09:52 | CT ---
HISTORYRECENT CERVICAL INFUSION, DRAINAGE R/O ABCESSSTUDYCT SOFT TISSUE NECK WITH CONCOMPARISONNone availableTECHNIQUEAxial images through the neck were performed with contrastFINDINGSImages through the inferior aspect of the brain are unremarkable. The orbits demonstrate symmetric enlargement of the of the ophthalmic veins nonspecific, there is a left-sided scleral banding. The included paranasal sinuses and mastoid cells are clear.There is an anterior fusion of C6-C7 with an anterior plate and a disc spacer the visualization of the endplate of T1 is limited due to artifact from the hardware. There is calcification of the posterior longitudinal ligament more severe at C3-C4, the anterior plate is in alignment, no lucencies to suggest loosening.There is a postoperative changes at C5-C6, the visualization of the spinal canal is limited in the posterior soft tissues at the level of C2-C3 and extending to C5 there is focal stranding with and small area of low attenuation measuring in AP dimension 4.2 centimeters and in thickness 1 centimeters and in craniocaudal dimension approximately 4 centimeters it could represent an early abscess formation burst versus postoperative fluid. There is draining into the skin region.There is alignment of the facets.The prevertebral soft tissues are unremarkableThere is symmetry of the nasopharynx, oropharynx and larynx. The lung apices demonstrate focal bronchiectasis in the left apex with thickening of the wall probably post infectionThe thyroid gland is diffusely enlarge with symmetry, the parotid gland demonstrate no enhancing lesions the parapharyngeal fat is preserved. The submandibular glands demonstrate no focal abnormalitiesThere is normal enhancement of the vessels of the neck. There is narrowing of the spinal canal at C2-C3 and C3-C4.IMPRESSIONPostoperative changes at C5-C6 along the posterior elements with a focal 4.2 x 1 x 4 centimeter, consider early abscess formation versus postoperative fluid. Visualization of the spinal canal at the level is limited, if it is clinical indicated follow-up with MRI can be performed.No collections in the anterior neck.Status post anterior fusion C6-C7 with a disc spacerElectronically signed by: Leanna Girard (May 01, 2020 09:49:32)
[2020-05-01] MEDS ORDERED: PHARMACY COMMENT IV NR (13:30)
[2020-05-01 14:18] LABS: CREATININE 1.2 mg/dL (0.70-1.30); VANCOMYCIN,TROUGH 9.9 ug/mL (15-20)
[2020-05-01] MEDS: VANCOMYCIN IV *PREMIX 1.25 G/250 ML BAG 1.25 G/250 ML PIGGYBACK IV SCH ×2 (14:36→21:42)
--- NOTE | 2020-05-01 16:32 | PCM.PROG ---
Progress Note Progress Note for Day of Date of Exam: 05/01/20 Subjective Subjective: Rajiv Patient seen at bedside, no acute overnight events. Patient did have a fever of 100.6. His surgical site continues to drain and dressing was changed multiple times overnight. He states he feels some tightness in that area. He has some non-productive cough. Denies chills. Denies GI Sx. He has been working with PT/OT. Labs: WBC 9.6 Hgb 11.2 Plt 349 BUN/Cr: 10/1.20 Glucose 113 Blood Cx no growth Wound Cx: MRSA Plan: Continue Vancomycin, DC Zosyn and zithromax. Will get a CT-neck to evaluate further and rule out abscess. Daily dressing. PT/OT as tolerated. Continue duonebs prn. Continue home medications. Resume allopurinol and Percocet. Monitor AM labs and imaging. Update: CT-neck: concerning for early abscess. CT report faxed over to Dr. Vance office. Spoke to physician engineer third assistant about patient's current treatment plan. At this time they recommend to continue with IV abx and dressing changes. If worsens will consider taking him to OR for a washout. Past Medical Family Social History Past Med/Fam/Surg Hx: No changes since H&P Allergies: Allergies No Known Drug Allergies Allergy (Verified 06/02/17 13:16) Review of Systems ROS: No change since H&P Vital Signs and I&O's Vital Signs: Temperature 98.2 F Pulse Rate [Right Brachial] 62 Pulse Rate [Left] 89 Pulse Rate 70 Respiratory Rate 20 Blood Pressure [Right Arm] 110/57 Blood Pressure [Left Arm] 145/77 Blood Pressure 128/60 O2 Sat by Pulse Oximetry 98 Intake and Output: Intake & Output 04/28/20 04/29/20 04/30/20 05/01/20 23:59 23:59 23:59 23:59 Intake Total 2448 / 2448 2800 / 2800 2291 / 2291 2296 / 2296 Output Total 950 / 950 1700 / 1700 750 / 750 650 / 650 Balance 1498 / 1498 1100 / 1100 1541 / 1541 1646 / 1646 Physical Exam Oriented: Normal Eyes: Normal Ear: Normal Nose: Normal Throat: Normal Respiratory: Generalized and Diminished Cardiovascular: Normal Auscultation: Bowel Sounds: Normal Tenderness: Normal Skin: Normal, Wound and Other (Cervical area drainage noted in multiple spots in the insicison, erythema present around the incision, tender to touch. ) Musculoskeletal: Tender and Motor Deficit (cervical area ) Psychiatric: Normal Mood Description: Calm Affect: Normal Speech Pattern: Clear and Appropriate Laboratory and Diagnostics Result Diagrams: 05/01/20 05:38 05/01/20 13:51 Labs: 04/29/20 18:15 Neck Gram Stain - Final 04/29/20 18:15 Neck Wound Culture - Final Methicillin Resis Staph Aureus 04/27/20 18:51 Blood Blood Culture - Preliminary 04/27/20 18:45 Blood Blood Culture - Preliminary Laboratory WBC 9.6 X10^3/uL (3.6-10.0) 05/01/20 05:38 RBC 3.87 X10^6/uL (4.7-6.0) L 05/01/20 05:38 Hgb 11.2 g/dL (13.5-18.0) L 05/01/20 05:38 Hct 33.0 % (42.0-54.0) L 05/01/20 05:38 MCV 85.4 fL (80.0-100.0) 05/01/20 05:38 MCH 28.9 pg (27.0-34.0) 05/01/20 05:38 MCHC 33.9 g/dL (33.0-35.0) 05/01/20 05:38 RDW 13.3 % (11.6-16.5) 05/01/20 05:38 Plt Count 349 X10^3/uL (150.0-450.0) 05/01/20 05:38 MPV 7.8 fL (7.4-11.0) 05/01/20 05:38 Neut % (Auto) 77.7 % (42.0-75.0) H 05/01/20 05:38 Lymph % (Auto) 13.2 % (21.0-51.0) L 05/01/20 05:38 [place] % (Auto) 6.9 % (0.0-13.0) 05/01/20 05:38 Eos % (Auto) 2.0 % (0.9-2.9) 05/01/20 05:38 Baso % (Auto) 0.2 % (0.2-1.0) 05/01/20 05:38 Neut # (Auto) 7.5 x10^3/uL (2.2-4.8) H 05/01/20 05:38 Lymph # (Auto) 1.3 X10^3/uL (1.3-2.9) 05/01/20 05:38 [place] # (Auto) 0.7 x10^3/uL (0.3-0.8) 05/01/20 05:38 Eos # (Auto) 0.2 x10^3/uL (0.0-0.2) 05/01/20 05:38 Baso # (Auto) 0.0 X10^3/uL (0.0-0.1) 05/01/20 05:38 Absolute Nucleated RBC 0.1 /100WBC 05/01/20 05:38 D-Dimer 5.42 ug/ml (0.0-0.57) H* 04/29/20 06:00 Sodium 135 mmol/L (136-145) L 05/01/20 05:38 Corrected Sodium 135 mmol/L (136-145) L 05/01/20 05:38 Potassium 4.1 mmol/L (3.5-5.1) 05/01/20 05:38 Chloride 103 mmol/L (98-107) 05/01/20 05:38 Carbon Dioxide 23.0 mmol/L (21-32) 05/01/20 05:38 BUN 10 mg/dL (7-18) 05/01/20 05:38 Creatinine 1.20 mg/dL (0.70-1.30) 05/01/20 13:51 Est GFR (MDRD) Af Amer > 60 (>60) 05/01/20 05:38 Est GFR (MDRD) Non-Af > 60 (>60) 05/01/20 05:38 Glucose 113 mg/dL (65-99) H 05/01/20 05:38 Calcium 8.7 mg/dL (8.5-10.1) 05/01/20 05:38 Corrected Calcium 9.7 mg/dL (8.5-10.1) 04/28/20 08:22 Magnesium 2.2 mg/dL (1.7-2.9) 04/30/20 05:53 Total Bilirubin 1.40 mg/dL (0.2-1.0) H 04/28/20 08:22 AST 21 Units/L (15-37) 04/28/20 08:22 ALT 44 Units/L (12-78) 04/28/20 08:22 Alkaline Phosphatase 98 Units/L (46-116) 04/28/20 08:22 Total Protein 7.6 g/dL (6.4-8.2) 04/28/20 08:22 Albumin 3.0 g/dL (3.4-5.0) L 04/28/20 08:22 Globulin 4.6 g/dL (2.5-4.5) H 04/28/20 08:22 Albumin/Globulin Ratio 0.7 Ratio (1.1-2.1) L 04/28/20 08:22 Vancomycin Trough 9.9 ug/mL (15-20) L 05/01/20 13:51 Influenza Type A Ag Negative-presumptive (NEGATIVE) 04/27/20 18:39 Influenza Type B Ag Negative-presumptive (NEGATIVE) 04/27/20 18:39 SARS CoV-2 RNA Rapid JASVIR Negative (NEGATIVE) 04/27/20 20:27 Plan (1) Surgical site infection: Status: Acute (2) Pneumonia: Status: Acute Qualifiers: Laterality: bilateral Lung location: unspecified part of lung Pneumonia type: due to unspecified organism Qualified Code(s): J18.9 - Pneumo thomas, unspecified organism (3) Cervical spine degeneration: Status: Acute Qualifiers: Spinal osteoarthritis complication: unspecified spinal osteoarthritis Q ualified Code(s): M47.812 - Spondylosis without myelopathy or radiculopathy, cervical region (4) CAD (coronary artery disease): Status: Acute Qualifiers: Associated angina: without angina Coronary Disease-Associated Artery/Lesion type: unspecified vessel or lesion type [place] vs. transplanted heart: [place] heart Qualified Code(s): I25.10 - Atherosclerotic heart disease of [place] coronary artery without angina pectoris (5) Hypertension: Status: Chronic Qualifiers: Hypertension type: essential hypertension Qualified Code(s): I10 - Essential (primary) hypertension (6) Infection of skin due to methicillin resistant Staphylococcus aureus (MRSA): Status: Acute
[2020-05-02] MEDS: PERCOCET TAB 5/325 MG PO SCH ×4 (02:54→21:33)
[2020-05-02] MEDS: DUONEB 0.5 MG/3 MG (3 mL) NEB SCH ×3 (05:05→20:50)
[2020-05-02] MEDS: VANCOMYCIN IV *PREMIX 1.25 G/250 ML BAG 1.25 G/250 ML PIGGYBACK IV SCH ×3 (05:16→21:33)
[2020-05-02] MEDS: NEURONTIN CAP 400 MG PO SCH ×3 (05:16→21:34)
[2020-05-02 06:26] LABS: BASOPHILS % (AUTO) 0.2 % (0.2-1.0); EOSINOPHILS # (AUTO) 0.2 x10^3/uL (0.0-0.2); EOSINOPHILS % (AUTO) 2.1 % (0.9-2.9); HEMATOCRIT 31.6 % (42.0-54.0); HEMOGLOBIN 10.9 g/dL (13.5-18.0); LYMPHOCYTES # (AUTO) 2.1 X10^3/uL (1.3-2.9); LYMPHOCYTES % (AUTO) 20.7 % (21.0-51.0); MEAN CORPUSCULAR HEMOGLOBIN 29.3 pg (27.0-34.0); MEAN CORPUSCULAR HGB CONC 34.6 g/dL (33.0-35.0); MEAN CORPUSCULAR VOLUME 84.7 fL (80.0-100.0); MEAN PLATELET VOLUME 7.8 fL (7.4-11.0); MONOCYTES # (AUTO) 0.7 x10^3/uL (0.3-0.8); MONOCYTES % (AUTO) 6.5 % (0.0-13.0); NEUTROPHILS # (AUTO) 7.1 x10^3/uL (2.2-4.8); NEUTROPHILS % (AUTO) 70.5 % (42.0-75.0); PLATELET COUNT 362 X10^3/uL (150.0-450.0); RED BLOOD COUNT 3.73 X10^6/uL (4.7-6.0); RED CELL DISTRIBUTION WIDTH 13.4 % (11.6-16.5); WHITE BLOOD COUNT 10.1 X10^3/uL (3.6-10.0)
[2020-05-02 06:50] LABS: BLOOD UREA NITROGEN 10 mg/dL (7-18); CARBON DIOXIDE 24.3 mmol/L (21-32); CHLORIDE 101 mmol/L (98-107); CREATININE 1.16 mg/dL (0.70-1.30); SODIUM 134 mmol/L (136-145); eGFR NON BLACK RACES > 60 (>60)
[2020-05-02] MEDS ORDERED: ZESTRIL TAB 20 MG ONE ×2 (08:35→20:03)
[2020-05-02] MEDS ORDERED: MORPHINE SULFATE INJ 2 MG INJ IVP PRN (09:06)
--- NOTE | 2020-05-02 09:21 | PCM.PROG ---
Progress Note Progress Note for Day of Date of Exam: 05/02/20 Subjective Subjective: Patient seen at bedside, no acute overnight events. Patient still continues to have significant drainage from the cervical surgery site. He states it's not as tight as it was but he does have pain. He states his home pain medication does not last long enough and he would like something in between. He has been afebrile for 24 hrs. Updated patient about my conversation with Dr. Vance staff yesterday and recommendations. Patient verbalized understanding. Labs: WBC 10.1 Hgb 10.9 Plt 362 Blood Cx no growth Wound Cx: MRSA Plan: Continue Vancomycin. Daily dressing. Continue to monitor surgical site. PT/OT as tolerated. Continue duonebs prn. Continue home medications. Will m orphine prn for break through pain, continue Percocet. Patient remains on room air, continue IS. Monitor AM labs. Past Medical Family Social History Past Med/Fam/Surg Hx: No changes since H&P Allergies: Allergies No Known Drug Allergies Allergy (Verified 06/02/17 13:16) Review of Systems ROS: No change since H&P Vital Signs and I&O's Vital Signs: Temperature 98.7 F Pulse Rate [Right Brachial] 66 Pulse Rate [Left] 72 Pulse Rate 71 Respiratory Rate 20 Blood Pressure [Right Arm] 108/58 Blood Pressure [Left Arm] 106/56 Blood Pressure 128/60 O2 Sat by Pulse Oximetry 99 Intake and Output: Intake & Output 04/29/20 04/30/20 05/01/20 05/02/20 23:59 23:59 23:59 23:59 Intake Total 2800 / 2800 2291 / 2291 2746 / 2746 700 / 700 Output Total 1700 / 1700 750 / 750 1350 / 1350 225 / 225 Balance 1100 / 1100 1541 / 1541 1396 / 1396 475 / 475 Physical Exam Oriented: Normal Eyes: Normal Ear: Normal Nose: Normal Throat: Normal Respiratory: Generalized and Diminished Cardiovascular: Normal Auscultation: Bowel Sounds: Normal Tenderness: Normal Skin: Normal, Wound and Other (Cervical area drainage noted in multiple spots in the insicison, erythema present around the incision, tender to touch. ) Musculoskeletal: Tender and Motor Deficit (cervical area ) Psychiatric: Normal Mood Description: Calm Affect: Normal Speech Pattern: Clear and Appropriate Laboratory and Diagnostics Result Diagrams: 05/02/20 05:32 05/02/20 05:32 Labs: 04/29/20 18:15 Neck Gram Stain - Final 04/29/20 18:15 Neck Wound Culture - Final Methicillin Resis Staph Aureus 04/27/20 18:51 Blood Blood Culture - Preliminary 04/27/20 18:45 Blood Blood Culture - Preliminary Laboratory WBC 10.1 X10^3/uL (3.6-10.0) H 05/02/20 05:32 RBC 3.73 X10^6/uL (4.7-6.0) L 05/02/20 05:32 Hgb 10.9 g/dL (13.5-18.0) L 05/02/20 05:32 Hct 31.6 % (42.0-54.0) L 05/02/20 05:32 MCV 84.7 fL (80.0-100.0) 05/02/20 05:32 MCH 29.3 pg (27.0-34.0) 05/02/20 05:32 MCHC 34.6 g/dL (33.0-35.0) 05/02/20 05:32 RDW 13.4 % (11.6-16.5) 05/02/20 05:32 Plt Count 362 X10^3/uL (150.0-450.0) 05/02/20 05:32 MPV 7.8 fL (7.4-11.0) 05/02/20 05:32 Neut % (Auto) 70.5 % (42.0-75.0) 05/02/20 05:32 Lymph % (Auto) 20.7 % (21.0-51.0) L 05/02/20 05:32 [place] % (Auto) 6.5 % (0.0-13.0) 05/02/20 05:32 Eos % (Auto) 2.1 % (0.9-2.9) 05/02/20 05:32 Baso % (Auto) 0.2 % (0.2-1.0) 05/02/20 05:32 Neut # (Auto) 7.1 x10^3/uL (2.2-4.8) H 05/02/20 05:32 Lymph # (Auto) 2.1 X10^3/uL (1.3-2.9) 05/02/20 05:32 [place] # (Auto) 0.7 x10^3/uL (0.3-0.8) 05/02/20 05:32 Eos # (Auto) 0.2 x10^3/uL (0.0-0.2) 05/02/20 05:32 Baso # (Auto) 0.0 X10^3/uL (0.0-0.1) 05/02/20 05:32 Absolute Nucleated RBC 0.1 /100WBC 05/02/20 05:32 D-Dimer 5.42 ug/ml (0.0-0.57) H* 04/29/20 06:00 Sodium 134 mmol/L (136-145) L 05/02/20 05:32 Corrected Sodium TNP 05/02/20 05:32 Potassium 3.9 mmol/L (3.5-5.1) 05/02/20 05:32 Chloride 101 mmol/L (98-107) 05/02/20 05:32 Carbon Dioxide 24.3 mmol/L (21-32) 05/02/20 05:32 BUN 10 mg/dL (7-18) 05/02/20 05:32 Creatinine 1.16 mg/dL (0.70-1.30) 05/02/20 05:32 Est GFR (MDRD) Af Amer > 60 (>60) 05/02/20 05:32 Est GFR (MDRD) Non-Af > 60 (>60) 05/02/20 05:32 Glucose 106 mg/dL (65-99) H 05/02/20 05:32 Calcium 9.0 mg/dL (8.5-10.1) 05/02/20 05:32 Corrected Calcium 9.7 mg/dL (8.5-10.1) 04/28/20 08:22 Magnesium 2.2 mg/dL (1.7-2.9) 04/30/20 05:53 Total Bilirubin 1.40 mg/dL (0.2-1.0) H 04/28/20 08:22 AST 21 Units/L (15-37) 04/28/20 08:22 ALT 44 Units/L (12-78) 04/28/20 08:22 Alkaline Phosphatase 98 Units/L (46-116) 04/28/20 08:22 Total Protein 7.6 g/dL (6.4-8.2) 04/28/20 08:22 Albumin 3.0 g/dL (3.4-5.0) L 04/28/20 08:22 Globulin 4.6 g/dL (2.5-4.5) H 04/28/20 08:22 Albumin/Globulin Ratio 0.7 Ratio (1.1-2.1) L 04/28/20 08:22 Vancomycin Trough 9.9 ug/mL (15-20) L 05/01/20 13:51 Influenza Type A Ag Negative-presumptive (NEGATIVE) 04/27/20 18:39 Influenza Type B Ag Negative-presumptive (NEGATIVE) 04/27/20 18:39 SARS CoV-2 RNA Rapid JASVIR Negative (NEGATIVE) 04/27/20 20:27 Plan (1) Surgical site infection: Status: Acute (2) Pneumonia: Status: Acute Qualifiers: Laterality: bilateral Lung location: unspecified part of lung Pneumonia type: due to unspecified organism Qualified Code(s): J18.9 - Pne umonia, unspecified organism (3) Cervical spine degeneration: Status: Acute Qualifiers: Spinal osteoarthritis complication: unspecified spinal osteoarthritis Qualified Code(s): M47.812 - Spondylosis without myelopathy or radiculopathy, cervical region (4) CAD (coronary artery disease): Status: Acute Qualifiers: Associated angina: without angina Coronary Disease-Associated Artery/Lesion type: unspecified vessel or lesion type [place] vs. transplanted heart: [place] heart Qualified Code(s): I25.10 - Atherosclerotic heart disease of [place] coronary artery without angina pectoris (5) Hypertension: Status: Chronic Qualifiers: Hypertension type: essential hypertension Qualified Code(s): I10 - Essential (primary) hypertension (6) Infection of skin due to methicillin resistant Staphylococcus aureus (MRSA): Status: Acute
[2020-05-02] MEDS: LOVENOX INJ 40 MG SYR SC SCH (10:22)
[2020-05-02] MEDS: ZESTRIL TAB 20 MG PO SCH ×2 (10:23→21:34)
[2020-05-02] MEDS: TOPROL XL PO SCH (10:24)
[2020-05-02] MEDS: MILK OF MAGNESIA PO SCH ×2 (10:24→21:33)
[2020-05-02] MEDS: PEPCID TAB 40 MG PO SCH (10:24)
[2020-05-02] MEDS: PROTONIX TAB 40 MG PO SCH (10:24)
[2020-05-02] MEDS: FLOMAX PO SCH (10:24)
[2020-05-02] MEDS: LIPITOR TAB 80 MG PO SCH (10:25)
[2020-05-02] MEDS: ZYLOPRIM PO SCH (10:25)
[2020-05-02] MEDS: NORVASC TAB 10 MG PO SCH (10:25)
[2020-05-02] MEDS: ASPIRIN EC 81 MG PO SCH (10:26)
[2020-05-02] MEDS: HYDROCHLOROTHIAZIDE 25 MG TAB PO SCH (10:26)
[2020-05-02] MEDS: ARIMIDEX PO SCH (10:26)
[2020-05-02] MEDS ORDERED: PHARMACY COMMENT IV NR (13:30)
[2020-05-02 14:39] LABS: CREATININE 1.18 mg/dL (0.70-1.30); VANCOMYCIN,TROUGH 15.5 ug/mL (15-20)
[2020-05-03] MEDS: PERCOCET TAB 5/325 MG PO SCH ×4 (03:13→21:06)
[2020-05-03] MEDS: NEURONTIN CAP 400 MG PO SCH ×3 (05:18→21:06)
[2020-05-03] MEDS: VANCOMYCIN IV *PREMIX 1.25 G/250 ML BAG 1.25 G/250 ML PIGGYBACK IV SCH ×3 (05:19→21:14)
[2020-05-03 05:34] LABS: BASOPHILS % (AUTO) 0.3 % (0.2-1.0); EOSINOPHILS # (AUTO) 0.2 x10^3/uL (0.0-0.2); EOSINOPHILS % (AUTO) 2.4 % (0.9-2.9); HEMATOCRIT 33.1 % (42.0-54.0); HEMOGLOBIN 11.1 g/dL (13.5-18.0); LYMPHOCYTES # (AUTO) 1.3 X10^3/uL (1.3-2.9); LYMPHOCYTES % (AUTO) 12.9 % (21.0-51.0); MEAN CORPUSCULAR HEMOGLOBIN 28.7 pg (27.0-34.0); MEAN CORPUSCULAR HGB CONC 33.5 g/dL (33.0-35.0); MEAN CORPUSCULAR VOLUME 85.7 fL (80.0-100.0); MEAN PLATELET VOLUME 7.5 fL (7.4-11.0); MONOCYTES # (AUTO) 0.5 x10^3/uL (0.3-0.8); MONOCYTES % (AUTO) 4.9 % (0.0-13.0); NEUTROPHILS # (AUTO) 8.1 x10^3/uL (2.2-4.8); NEUTROPHILS % (AUTO) 79.5 % (42.0-75.0); PLATELET COUNT 384 X10^3/uL (150.0-450.0); RED BLOOD COUNT 3.87 X10^6/uL (4.7-6.0); RED CELL DISTRIBUTION WIDTH 13.5 % (11.6-16.5); WHITE BLOOD COUNT 10.2 X10^3/uL (3.6-10.0)
[2020-05-03 05:40] LABS: BLOOD UREA NITROGEN 12 mg/dL (7-18); CARBON DIOXIDE 26.9 mmol/L (21-32); CHLORIDE 100 mmol/L (98-107); COR NA(FOR HYPERGLY) 135 mmol/L (136-145); CREATININE 1.26 mg/dL (0.70-1.30); SODIUM 134 mmol/L (136-145); eGFR NON BLACK RACES > 60 (>60)
[2020-05-03] MEDS: DUONEB 0.5 MG/3 MG (3 mL) NEB SCH ×3 (05:57→21:00)
[2020-05-03] MEDS ORDERED: ZESTRIL TAB 20 MG ONE ×2 (08:37→20:13)
[2020-05-03] MEDS: TOPROL XL PO SCH (09:25)
[2020-05-03] MEDS: ZESTRIL TAB 20 MG PO SCH ×2 (09:58→21:06)
[2020-05-03] MEDS: ARIMIDEX PO SCH (09:58)
[2020-05-03] MEDS: LOVENOX INJ 40 MG SYR SC SCH (09:59)
[2020-05-03] MEDS: PEPCID TAB 40 MG PO SCH (09:59)
[2020-05-03] MEDS: ASPIRIN EC 81 MG PO SCH (09:59)
[2020-05-03] MEDS: MILK OF MAGNESIA PO SCH ×2 (09:59→21:07)
[2020-05-03] MEDS: FLOMAX PO SCH (10:00)
[2020-05-03] MEDS: PROTONIX TAB 40 MG PO SCH (10:00)
[2020-05-03] MEDS: NORVASC TAB 10 MG PO SCH (10:00)
[2020-05-03] MEDS: LIPITOR TAB 80 MG PO SCH (10:00)
[2020-05-03] MEDS: ZYLOPRIM PO SCH (10:00)
[2020-05-03] MEDS: HYDROCHLOROTHIAZIDE 25 MG TAB PO SCH (10:00)
--- NOTE | 2020-05-03 10:25 | RAD ---
HISTORYPneumoniaSTUDYPortable AP [id number] heart size and configuration. The lungs are symmetrically inflated and essentially clear. There is no evidence for localized infiltrate or consolidation or pleural fluid.IMPRESSIONNo change since 05/01/2020. No acute chest findings.Electronically signed by: SHARMILA PENN (May 03, 2020 10:24:17)
[2020-05-04] MEDS: PERCOCET TAB 5/325 MG PO SCH ×3 (03:50→15:05)
[2020-05-04] MEDS: NEURONTIN CAP 400 MG PO SCH ×2 (05:16→14:55)
[2020-05-04] MEDS: VANCOMYCIN IV *PREMIX 1.25 G/250 ML BAG 1.25 G/250 ML PIGGYBACK IV SCH (05:16)
[2020-05-04] MEDS: DUONEB 0.5 MG/3 MG (3 mL) NEB SCH ×2 (05:45→14:15)
[2020-05-04 06:14] LABS: BASOPHILS % (AUTO) 0.4 % (0.2-1.0); EOSINOPHILS # (AUTO) 0.2 x10^3/uL (0.0-0.2); EOSINOPHILS % (AUTO) 2.4 % (0.9-2.9); HEMATOCRIT 32.7 % (42.0-54.0); HEMOGLOBIN 10.9 g/dL (13.5-18.0); LYMPHOCYTES # (AUTO) 1.5 X10^3/uL (1.3-2.9); MEAN CORPUSCULAR HEMOGLOBIN 28.5 pg (27.0-34.0); MEAN CORPUSCULAR HGB CONC 33.3 g/dL (33.0-35.0); MEAN CORPUSCULAR VOLUME 85.4 fL (80.0-100.0); MEAN PLATELET VOLUME 7.6 fL (7.4-11.0); MONOCYTES # (AUTO) 0.6 x10^3/uL (0.3-0.8); MONOCYTES % (AUTO) 6.4 % (0.0-13.0); NEUTROPHILS # (AUTO) 7.1 x10^3/uL (2.2-4.8); NEUTROPHILS % (AUTO) 74.8 % (42.0-75.0); PLATELET COUNT 396 X10^3/uL (150.0-450.0); RED BLOOD COUNT 3.83 X10^6/uL (4.7-6.0); RED CELL DISTRIBUTION WIDTH 13.4 % (11.6-16.5); WHITE BLOOD COUNT 9.5 X10^3/uL (3.6-10.0)
[2020-05-04 06:23] LABS: BLOOD UREA NITROGEN 13 mg/dL (7-18); CALCIUM 8.9 mg/dL (8.5-10.1); CARBON DIOXIDE 24.4 mmol/L (21-32); CHLORIDE 101 mmol/L (98-107); CREATININE 1.19 mg/dL (0.70-1.30); SODIUM 135 mmol/L (136-145); eGFR NON BLACK RACES > 60 (>60)
[2020-05-04 06:45] LABS: CREATININE 1.19 mg/dL (0.70-1.30)
[2020-05-04 06:47] LABS: VANCOMYCIN,TROUGH 43.2 ug/mL (15-20)
[2020-05-04] MEDS ORDERED: ZESTRIL TAB 20 MG ONE (08:13)
[2020-05-04] MEDS: ZESTRIL TAB 20 MG PO SCH (09:05)
[2020-05-04] MEDS: ARIMIDEX PO SCH (09:52)
[2020-05-04] MEDS: PROTONIX TAB 40 MG PO SCH (09:52)
[2020-05-04] MEDS: FLOMAX PO SCH (09:53)
[2020-05-04] MEDS: NORVASC TAB 10 MG PO SCH (09:53)
[2020-05-04] MEDS: ASPIRIN EC 81 MG PO SCH (09:53)
[2020-05-04] MEDS: MILK OF MAGNESIA PO SCH (09:53)
[2020-05-04] MEDS: HYDROCHLOROTHIAZIDE 25 MG TAB PO SCH (09:53)
[2020-05-04] MEDS: LOVENOX INJ 40 MG SYR SC SCH (09:54)
[2020-05-04] MEDS: PEPCID TAB 40 MG PO SCH (09:54)
[2020-05-04] MEDS: LIPITOR TAB 80 MG PO SCH (09:54)
[2020-05-04] MEDS: TOPROL XL PO SCH (09:54)
[2020-05-04] MEDS: ZYLOPRIM PO SCH (09:54)
[2020-05-04 13:59] LABS: CREATININE 1.19 mg/dL (0.70-1.30)
[2020-05-04 14:01] LABS: VANCOMYCIN,TROUGH 20.5 ug/mL (15-20)
[2020-05-04 16:25] VITALS: BP 123/67
[2020-05-04] MEDS ORDERED: VANCOMYCIN IV *PREMIX 1 G/200 ML BAG 1 G/200 ML PIGGYBACK IV SCH (22:00)
== END 2020-05-04 18:25 | disposition home or self-care (01) | DRG 862 ==
LOC: ER 17:45 → MED/SURG 17:45
PROVIDERS: ADMIT Internal Medicine; ATTEND Internal Medicine